=== PATIENT | female | born 1955 | race African-American/Black ===

== ENCOUNTER 2019-11-07 06:42 | Inpatient (IN) | payer OTHER ==
[2019-11-07] VITALS (61 sets, daily range): BP systolic 93–221; BP diastolic 49–128
[~2019-11-07] VITALS: Ht 167.6 cm; Wt 84.4 kg
[2019-11-07] MEDS ORDERED: NACL 0.9% 1,000 ML IV SCH (07:00)
[2019-11-07] MEDS ORDERED: ETOMIDATE 20 MG/10 ML VIAL IVP ONE (07:00)
[2019-11-07] MEDS ORDERED: SUCCINYLCHOLINE CHLORIDE 200 MG/10 ML VIAL IVP ONE (07:00)
--- NOTE | 2019-11-07 07:04 | NUR ---
LAB AT BEDSIDE ATTEMPT TO DRAW BLOOD.
[2019-11-07] MEDS ORDERED: LORazepam 2 MG/ML VIAL IVP ONE (07:15)
[2019-11-07] MEDS ORDERED: LORazepam 2 MG/ML VIAL ONE (07:16)
[2019-11-07] MEDS ORDERED: PROPOFOL 1000 MG/100 ML PREMIX 100 ML IV ONE ×2 (07:19→07:35)
[2019-11-07] MEDS ORDERED: PIPERACILLIN/TAZOBACTAM 4.5 GM in DEXTROSE 5% 100 ML IV ONE (07:20)
[2019-11-07] MEDS ORDERED: VANCOMYCIN 1,000 MG in DEXTROSE 5% 250 ML IV ONE (07:20)
--- NOTE | 2019-11-07 07:21 | NUR ---
PT BIBA FOR RESPIRATORY DISTRESS. EMS STATE ARRIVING ON SCENE TO FINDING 64F SOB TRYING TO USE HOME BI-PA AND BREATHING TREATMENT. EMS STATE INITIAL ROOM AIR 02 SAT 50%. EMS STATE MEDICAL HX OF COPD, UNABLE TO GET MORE MEDICAL HX FROM PT OR FAMILY. EMS DID NOT GATHER PT MEDICATION. PT TRANSPORTED CODE 3 TO HOSPITAL. EMS STATE ATTEMPTING TO C-PAP PT EN-ROUTE. PT DID NOT TOLERATE C-PAP AND BECAME ALTERED. PT THEN SWITCHED TO BVM. EMS ATTEMPTING TO START IV, NO SUCCESS. PT TAKING TO BED 10. DR. BECKFORD, 2 RT, 4 NURSE AND TECH AT BEDSIDE AT 0639. PT VENTILATIONS CONTINUED BY RT. PT VS 129 SINUS TACH, O2 SAT 98%, 221/128 BP, TEMP 98.6 AXILLARY. PT APPEARS TO BE DIAPHORETIC AND STATING I CANT BREATH WHILE THRASHING IN BED. 22G IV STARTED LEFT LOWER FOREARM AT 0649, IV BOLUS CONNCECTED AT THAT TIME. ETOMIDATE 20MG GIVEN AT 0652. SUCC GIVEN 0653. DR. BECKFORD INTUBATED WITH 7.5 24 AT TEETH 0654 WITH ONE ATTEMPT. COLOR CHANGE ON CO2 DETECTOR, BILATERAL LUNGS SOUNDS AUSCULTATED. PT O2 SAT 98%. FAMILY IN WAITING ROOM. X-RAY AT BEDSIDE.
[2019-11-07 07:35] LABS: MEAN CORPUSCULAR HEMOGLOBIN 29 pg (27-31); RED BLOOD CELL COUNT(AUTO) 4.43 MIL/uL (4.20-5.40); RED CELL DISTRIBUTION WIDTH 14.3 % (11.6-13.7)
[2019-11-07] MEDS ORDERED: fentaNYL 0.05 MG/ML VIAL IVP ONE (07:35)
--- NOTE | 2019-11-07 07:36 | NUR ---
PT PULLED OUT IV ON RT AC. ATTEMPTING TO MOVE HANDS TO ET TUBE. APPLIED SOFT WRIST RESTRAINTS TO BILATERAL WRISTS PER DR. HUTCHINSON. Addendum: 11/07/19 at 1140 by JONATHAN PULLED OUT RT AC IV AT 0720.
[2019-11-07 07:42] LABS: BASOPHILS % (AUTO) 0.2 % (0.0-2.0); EOSINOPHILS # (AUTO) 0.1 K/uL (0-0.4); EOSINOPHILS % (AUTO) 0.5 % (0.0-4.0); HEMATOCRIT 41.2 % (36-48); HEMOGLOBIN 12.8 g/dL (12.0-16.0); LYMPHOCYTES # (AUTO) 9.4 K/uL (2.5-16.5); LYMPHOCYTES % (AUTO) 43.9 % (20.5-51.1); MEAN CORPUSCULAR HGB CONC 31 g/dL (33-37); MEAN CORPUSCULAR VOLUME 93.1 fL (80-94); MONOCYTES # (AUTO) 1.4 K/uL (0.8-1.0); MONOCYTES % (AUTO) 6.5 % (1.7-9.3); NEUTROPHILS # (AUTO) 10.5 K/uL (1.8-7.7); NEUTROPHILS % (AUTO) 48.9 % (42.2-75.2); PLATELET COUNT (AUTO) 266 K/uL (140-450)
--- NOTE | 2019-11-07 07:43 | NUR ---
PER DR WINTER, PT ETT WAS PULL OUT FROM 24 CM @ GUM TO 23CM @ GUM.
[2019-11-07 07:44] LABS: ALBUMIN 3.3 g/dL (3.4-5.0); ANION GAP 19.4 (8-16); CARBON DIOXIDE 20.3 mmol/L (21-32); CREATININE 1.2 mg/dL (0.6-1.3); POTASSIUM 3.7 mmol/L (3.5-5.1); TOTAL BILIRUBIN 0.2 mg/dL (0.0-1.0)
[2019-11-07 07:45] LABS: WHITE BLOOD COUNT (AUTO) 21.5 K/uL (4.8-10.8)
--- NOTE | 2019-11-07 07:45 | NUR ---
INSERTED Yoon catheter WITH UROMETER utilizing sterile technique. Immediate return of 100 ml CLEAR YELLOW urine noted. Bedside drainage bag placed below level of bladder. Urine sample collected and sent to lab. Pt tolerated procedure WELL.
--- NOTE | 2019-11-07 07:52 | NUR ---
DIPROVAN DRIP RATE CALCULATED BY PATIENT WEIGHT OF 81.647 KG.
[2019-11-07] MEDS ORDERED: PIPERACILLIN/TAZOBACTAM 2.25 GM VIAL IV ONE (07:53)
[2019-11-07] MEDS ORDERED: VANCOMYCIN 1,000 MG VIAL ONE (07:53)
[2019-11-07] MEDS ORDERED: ALBUTEROL SULFATE/IPRATROPIU 3 ML SOL IH PRN (08:00)
--- NOTE | 2019-11-07 08:03 | NUR ---
DR. WINTER EVALUATING PT AT BEDSIDE.
--- NOTE | 2019-11-07 08:14 | NUR ---
DR. WINTER AT BEDSIDE FOR CENTRAL LINE INSERTION.
[2019-11-07 08:19] LABS: APPEARANCE,URINE CLEAR (CLEAR); BILIRUBIN,URINE NEGATIVE (NEGATIVE); BLOOD, URINE 1+ (NEGATIVE); COLOR,URINE YELLOW (YELLOW); LEUKOCYTE ESTERASE ,URINE NEGATIVE (NEGATIVE); NITRITE, URINE NEGATIVE (NEGATIVE); UGLUCOSE 3+ (NEGATIVE)
--- NOTE | 2019-11-07 08:20 | NUR ---
PT BECAME AGITATED WHILE LOWERING HOB TO CHECK JUGULAR SITE FOR CENTRAL LINE PLACEMENT BY DR. WINTER. PER DR. WINTER, TITRATE UP THE PROPOFOL DRIP.
--- NOTE | 2019-11-07 08:25 | NUR ---
PT RESTING IN BED, RASS -3, DR. WINTER AT BEDSIDE.
--- NOTE | 2019-11-07 08:30 | NUR ---
PT CONTINUES TO BE AGITATED, ATTEMPTING TO MOVE HANDS TO ET TUBE. PER DR. WINTER AT BEDSIDE, INCREASE THE PROPOFOL DRIP. Addendum: 11/07/19 at 1203 by JONATHAN WHEN ATTEMPTING TO MOVE PATIENT FOR CENTRAL LINE
--- NOTE | 2019-11-07 08:38 | NUR ---
TRIPLE LUMEN CENTRAL LINE TO LEFT FEMORAL INSERTED BY DR. WINTER AT BEDSIDE.
[2019-11-07] MEDS ORDERED: NACL 0.9% 1,000 ML IV ONE (08:40)
[2019-11-07 08:43] LABS: RBC,URINE 11-20 (MOD) /HPF (0-5)
--- NOTE | 2019-11-07 08:53 | NUR ---
RT AT BEDSIDE FOR RESPIRATORY INTERVENTION.
--- NOTE | 2019-11-07 09:04 | NUR ---
PT RESTING IN BED, CALM, WITH ADEQUATE AND SYMMETRICAL RISE AND FALL OF CHEST. NO RESPIRATORY DISTRESS NOTED. VSS. RT AT BEDSIDE.
--- NOTE | 2019-11-07 09:26 | NUR ---
RT AT BEDSIDE FOR ABG DRAW.
--- NOTE | 2019-11-07 10:25 | NUR ---
ADMITTED PT FROM ER. PT SEDATED. ON PROPOFOL 25 MCG/KG/MIN BASED ON DRY WEIGHT 81.6 KG. RASS -3. BEDSIDE MONITOR SHOWS SR-SB. PT ETT TO VENT WITH SETTING FIO2=30%, IC=972, AC=16. PEEP 5. NO S/S OF RESPIRATORY DISTRESS NOTED. LUNG SOUND WHEEZING. PT HAS LEFT FEMORAL CENTRAL LINE AND RIGHT FOREARM #20 AND IV TO LEFT FOREARM. INTACT AND PATENT. PT ABD LARGE, SOFT. F/C IN PLACE WITH URINE NOTED. SKIN INTACT , HOB ELEVATED 30 DEGREES WITH LOW BED POSITION, WILL CONTINUE TO MONITOR.
--- NOTE | 2019-11-07 10:25 | NUR ---
TRANFERED TO ICU VIA [facility] BY MYSELF, ISRAEL RT, NIYA EMT. REPORT TO BEVERLY CANNON RN IN ICU. PT IN STABLE CONDITION THROUGHOUT TRANSFER. VSS UPON TRANSFER TO ICU BED 2.
[2019-11-07] MEDS ORDERED: ACETAMINOPHEN 325 MG TAB PO PRN ×2 (10:30→10:35)
[2019-11-07] MEDS ORDERED: PROMETHAZINE 25 MG/ML VIAL IVP PRN (10:30)
[2019-11-07] MEDS ORDERED: NITROGLYCERIN 0.4 MG TAB SL PRN (10:30)
[2019-11-07] MEDS ORDERED: MORPHINE SULFATE 2 MG/ML SYR IVP PRN (10:35)
[2019-11-07] MEDS ORDERED: ONDANSETRON 4 MG/2 ML VIAL IVP PRN (10:35)
[2019-11-07] MEDS ORDERED: PROPOFOL 1000 MG/100 ML PREMIX 100 ML IV PRN (10:35)
[2019-11-07] MEDS ORDERED: DEXTROSE 50% 50 ML SYR IVP PRN (10:35)
[2019-11-07] MEDS ORDERED: MAG SULF 2000 MG/WATER PREMIX 50 ML IV PRN (10:35)
[2019-11-07] MEDS ORDERED: POTASSIUM CHLORIDE 10 MEQ TABER PO PRN (10:35)
--- NOTE | 2019-11-07 10:50 | NUR ---
DR. QUISPE IN TO SEE PT, SPOKE WITH PT'S DAUGHTER AT BEDSIDE. DR. QUISPE MADE AWARE OF PT'S DECREASED HR IN 50'S. WILL FOLLOW UP ON ORDERS.
--- NOTE | 2019-11-07 11:00 | NUR ---
BASED ON ABG RESULTS DR QUISPE INCREASED THE Vt TO 550 AND RR TO 16.
[2019-11-07] MEDS: BLOOD GLUCOSE MONITORING 1 DEV DEV FS SCH ×3 (11:38→21:00)
[2019-11-07] MEDS: NACL 0.9% 500 ML IV SCH ×3 (11:38→23:21)
--- NOTE | 2019-11-07 11:50 | NUR ---
SPOKE WITH PT'S BROTHER ALEX SUAREZ, OBTAINED TELEPHONE CONSENT FOR CT CHEST ANGIO W/ CONTRAST. HOWEVER, PT'S BROTHER CANNOT GIVE ANY MEDICAL HISTORY AND INFO ON HOME MEDICATIONS. WILL FOLLOW UP WITH DAUGHTER, PURA.
--- NOTE | 2019-11-07 12:15 | NUR ---
SPOKE WITH PT'S DAUGHTER PURA. HOWEVER PURA ALSO CANNOT PROVIDE ANY INFORMATION REGARDING PT'S MEDICAL HISTORY, HOME MEDS AND QUESTIONS FOR CT CHEST ANGIO. PER DAUGHTER, PURA AND BROTHER, ALEX, CALL PT'S PCP DR. BOY Denis AT [phone] FOR ANY QUESTIONS. WILL FOLLOW UP WITH PT'S PCP.
[2019-11-07] MEDS: INSULIN LISPRO SLIDING SCALE 100 UNITS/ML VIAL SUBQ PRN (12:26)
--- NOTE | 2019-11-07 12:30 | NUR ---
CALLED PT'S PCP DR. BRUNSON'S OFFICE AT [phone], CURRENTLY ON LUNCH BREAK. WILL TRY AGAIN AND FOLLOW UP.
[2019-11-07] MEDS ORDERED: ALBUTEROL SULFATE/IPRATROPIU 3 ML SOL IH SCH (13:00)
--- NOTE | 2019-11-07 13:15 | NUR ---
PT'S DAUGHTER PURA IN THE UNIT. SIGNED CONSENT AND FILLED OUT CT CHEST ANGIO W/ CONTRAST FORM. PER PURA, SHE WILL ASK PT'S PHARMACY TO FAX HOME MED LIST TO [place] ICU. ICU FAX AND PHONE NUMBERS PROVIDED TO PURA. WILL FOLLOW UP.
[2019-11-07] MEDS: SODIUM CHLORIDE FLUSH 10 ML SYR IVF SCH ×2 (13:17→21:00)
[2019-11-07] MEDS: AZITHROMYCIN 500 MG in DEXTROSE 5% 250 ML IV SCH (13:40)
--- NOTE | 2019-11-07 13:45 | NUR ---
CALLED KENYA OSMAN TO NOTIFY THAT CONSENT IS SIGNED AND PT IS READY FOR CTA CHEST
[2019-11-07] MEDS: PROPOFOL 1000 MG/100 ML PREMIX 100 ML IV PRN ×3 (13:47→23:02)
--- NOTE | 2019-11-07 14:50 | NUR ---
TRANSFERED PT CT VIA [facility] CT DONE PT BROUT BACK TO ICU 2 AND PLACED ON VENT WITH SETTINGS CHARTED PO ILL EFFECTS NOTED
--- NOTE | 2019-11-07 15:20 | NUR ---
CALLED [facility] AT [facility]: [phone] AND SPOKE WITH ERIKA GALEANA REGARDING PT'S MEDICATION LIST. PER KERVIN, SHE WILL FAX MED LIST TO ICU SOON SHE CAN. WILL FOLLOW UP.
--- NOTE | 2019-11-07 15:56 | NUR ---
CALLED PT'S PCP, DR. MAGDIEL BRUNSON'S OFFICE ([phone]) AND SPOKE WITH JENISE. PER JENISE, THEY DO NOT HAVE ANY RECORD FOR BOTH FLU AND PNEUMONIA VACCINES, BUT SHE WILL FAX CURRENT MEDICATION LIST TO ICU.
[2019-11-07] MEDS ORDERED: ALLO100T21 PO (16:35)
[2019-11-07] MEDS ORDERED: CARV6.25 PO (16:40)
[2019-11-07] MEDS ORDERED: CLOP75TA26 PO (16:42)
[2019-11-07] MEDS ORDERED: EZET10TA14 PO (16:45)
[2019-11-07] MEDS ORDERED: TRI48 PO (16:46)
[2019-11-07] MEDS ORDERED: LISI10TA11 PO (16:49)
[2019-11-07] MEDS ORDERED: MONT10TA35 PO (16:50)
[2019-11-07] MEDS ORDERED: NIFE90TE3 PO (16:51)
[2019-11-07] MEDS ORDERED: SIMV20TA1 PO (16:56)
--- NOTE | 2019-11-07 17:34 | NUR ---
DR THAPA PAGED/MESSAGED VIA CALL CENTER FOR NEW CONSULT.
[2019-11-07 17:49] LABS: APPEARANCE,URINE CLEAR (CLEAR); BILIRUBIN,URINE NEGATIVE (NEGATIVE); BLOOD, URINE 1+ (NEGATIVE); COLOR,URINE YELLOW (YELLOW); LEUKOCYTE ESTERASE ,URINE NEGATIVE (NEGATIVE); NITRITE, URINE NEGATIVE (NEGATIVE); UGLUCOSE NEGATIVE (NEGATIVE)
[2019-11-07 17:54] LABS: BARBITURATE, URINE NEG. ng/ml (NEG <=200); BENZODIAZEPINE, URINE NEG. ng/mL (NEG <=200); CANNABINOID, URINE POS. ng/mL (NEG <=50); COCAINE, URINE NEG. ng/mL (NEG <=300); OPIATE, URINE NEG. ng/mL (NEG <=2000); PHENCYCLIDINE SCREEN,URINE NEG. ng/mL (NEG <=25)
[2019-11-07 18:33] LABS: WBC,URINE 0-5 /HPF (0-5)
[2019-11-07 18:48] LABS: PROTHROMBIN TIME 8.9 secs (10.8-13.4)
--- NOTE | 2019-11-07 19:45 | NUR ---
RECEIVED REPORT FROM BEVERLY SAINI. PUPPILS 4MM, BRISK. PT ETT TO VENT ON ACVC SETTINGS. FIO2 30, TV 550, RATE 16, PEEP 5. RASS -3. PT ON SOFT BILAT WRIST RESTRAINTS. CAP REFILL LESS THAN 2 SECONDS. SKIN WARM AND DRY. CENTRAL LINE LEFT FEMORAL. INTACT, PATENT. COLLINS CATHETER IN PLACE. DRY WEIGHT 81.6KG. BED LOCKED IN LOWEST POSITION.
--- NOTE | 2019-11-07 20:00 | NUR ---
PT HAS EYES. ORAL CARE PROVIDED. NO SOB NOTED. RESPIRATIONS EVEN AND UNLABORED. RASS -3. BED LOCKED IN LOWEST POSITION.
[2019-11-07] MEDS: CARVEDILOL 6.25 MG TAB PO SCH (21:00)
--- NOTE | 2019-11-07 22:40 | NUR ---
INSERTED NGT PER DR QUISPE ORDERED. INSERTED ON RIGHT NARE. AUSCULTATED FOR PLACEMENT. CXR WILL CONFIRM FOR PLACEMENT.
[2019-11-07] MEDS: SIMVASTATIN 20 MG TAB PO SCH (23:20)
[2019-11-07] MEDS: ALLOPURINOL 100 MG TAB PO SCH (23:21)
[2019-11-08] VITALS (99 sets, daily range): BP systolic 125–185; BP diastolic 55–129
--- NOTE | 2019-11-08 | NUR ---
PT HAS EYES CLOSED, PT REPOSITIONED. NO SOB NOTED. RESPIRATIONS EVEN AND UNLABORED. WILL CONTINUE TO MONITOR.
[2019-11-08] MEDS: PROPOFOL 1000 MG/100 ML PREMIX 100 ML IV PRN ×6 (01:37→20:08)
--- NOTE | 2019-11-08 02:30 | NUR ---
PT HAS EYES CLOSED. NO SOB NOTED. RESPIRATIONS EVEN AND UNLABORED. CHEST RISE IS SYMMETRICAL. BED LOCKED IN LOWEST POSITION. WILL CONTINUE TO MONITOR.
--- NOTE | 2019-11-08 04:20 | NUR ---
ORAL CARE PROVIDED. PT REPOSITIONED. PT HAS EYES CLOSED. NO SOB NOTED. RESPIRATIONS EVEN AND UNLABORED. BED LOCKED IN LOWEST POSITION. HOB 30 DEGREES. WILL CONTINUE TO MONITOR.
[2019-11-08] MEDS: NACL 0.9% 500 ML IV SCH ×4 (05:09→20:01)
[2019-11-08] MEDS: SODIUM CHLORIDE FLUSH 10 ML SYR IVF SCH ×3 (05:10→20:26)
--- NOTE | 2019-11-08 06:00 | NUR ---
REPOSITIONED FOR COMFORT. WILL CONTINUE TO MONITOR.
[2019-11-08 06:40] LABS: ANION GAP 14.4 (8-16); CARBON DIOXIDE 23.6 mmol/L (21-32)
[2019-11-08] MEDS: BLOOD GLUCOSE MONITORING 1 DEV DEV FS SCH ×4 (06:52→20:26)
--- NOTE | 2019-11-08 07:25 | NUR ---
RECEIVED BEDSIDE REPORT FROM TERRITORY SALES MANAGER RN, SUMMER. PT HAS ETT TO VENT, AC/VC, FIO2 30, TV 550, RATE 16, PEEP 5. RASS -3 ON PROPOFOL 50MCG/KG/MIN, DRY WEIGHT 81.6 KG. PT ON SOFT BILAT WRIST RESTRAINTS. CAP REFILL LESS THAN 2 SECONDS. LUNG SOUNDS COARSE, BOWELS SOUNDS ACTIVE. SUCTIONED PT, OBTAINED WHITE SPUTUM. SKIN WARM AND DRY. RIGHT ARM HAS EDEMA DUE TO PREVIOUS IV INFILTRATION. CENTRAL LINE LEFT FEMORAL, ASYMPTOMATIC AND INTACT, RUNNING PROPOFOL AND NS AT 85ML/HR. COLLINS CATHETER IN PLACE, DRAINING CLEAR YELLOW URINE. CALL LIGHT WITHIN REACH. BED LOCKED IN LOWEST POSITION.
[2019-11-08 07:38] LABS: CHOL/HDL RATIO 8.5 (1-4.5); MAGNESIUM 1.5 mg/dL (1.8-2.4)
[2019-11-08] MEDS: NIFEdipine 90 MG TABER PO SCH (09:00)
[2019-11-08] MEDS ORDERED: KCL 20 MEQ/WATER INJ PREMIX 200 ML IV SCH (09:00)
[2019-11-08] MEDS ORDERED: ENOXAPARIN 40 MG/0.4 ML SYR SUBQ SCH (09:00)
[2019-11-08] MEDS: PANTOPRAZOLE 40 MG INJ VIAL IVP SCH (09:09)
[2019-11-08] MEDS: MONTELUKAST SODIUM 10 MG TAB PO SCH (09:10)
[2019-11-08] MEDS: EZETIMIBE 10 MG TAB PO SCH (09:11)
[2019-11-08] MEDS: CLOPIDOGREL 75 MG TAB PO SCH (09:11)
[2019-11-08] MEDS: CARVEDILOL 6.25 MG TAB PO SCH ×2 (09:12→20:27)
[2019-11-08] MEDS: LISINOPRIL 10 MG TAB PO SCH (09:12)
[2019-11-08] MEDS: FENOFIBRATE 48 MG TAB PO SCH (09:12)
[2019-11-08] MEDS: amLODIPine 5 MG TAB PO SCH (09:13)
[2019-11-08 09:40] LABS: BASOPHILS # (AUTO) 0.1 K/uL (0.00-0.22)
--- NOTE | 2019-11-08 09:53 | NUR ---
CALLED [phone] AND LEFT MESSAGE FOR PROMOTION PRODUCER, THAT DR QUISPE WANTS TO ORDER PULMOCARE FEEDING. NEEDS RATE AND FORMULA RECOMMENDATION.
--- NOTE | 2019-11-08 10:00 | NUR ---
PATIENT HAS BEEN SCREENED AND CATEGORIZED MODERATE NUTRITION RISK. PATIENT WILL BE SEEN WITHIN 3-5 DAYS OF ADMISSION. 11/10/19-11/12/[address]
[2019-11-08 10:12] LABS: EOSINOPHILS # (AUTO) 0.2 K/uL (0-0.4); MONOCYTES # (AUTO) 1.3 K/uL (0.8-1.0); PLATELET COUNT (AUTO) 131 K/uL (140-450)
[2019-11-08] MEDS: methylPREDNISolone SS 40 MG/ML VIAL IVP SCH ×3 (10:14→20:27)
[2019-11-08 10:42] LABS: BASOPHILS % (AUTO) 0.5 % (0.0-2.0); EOSINOPHILS % (AUTO) 1.4 % (0.0-4.0); HEMATOCRIT 37.9 % (36-48); HEMOGLOBIN 12.1 g/dL (12.0-16.0); LYMPHOCYTES # (AUTO) 3.7 K/uL (2.5-16.5); LYMPHOCYTES % (AUTO) 26.5 % (20.5-51.1); MEAN CORPUSCULAR HEMOGLOBIN 29 pg (27-31); MEAN CORPUSCULAR HGB CONC 32 g/dL (33-37); MEAN CORPUSCULAR VOLUME 90.5 fL (80-94); NEUTROPHILS # (AUTO) 8.7 K/uL (1.8-7.7); NEUTROPHILS % (AUTO) 62.6 % (42.2-75.2); RED BLOOD CELL COUNT(AUTO) 4.19 MIL/uL (4.20-5.40); RED CELL DISTRIBUTION WIDTH 14.8 % (11.6-13.7)
--- NOTE | 2019-11-08 10:52 | NUR ---
DISCHARGE PLANNIN64 Y/O FEMALE PATIENT FROM HOME, WHO CAME IN DUE TO SOB. PAST MEDICAL HISTORY OF COPD ON HOME O2, SMOKER, OBESITY, DIABETES AND HTN. INITIAL DIAGNOSIS OF ACUTE RESPIRATORY FAILURE. ORALLY INTUBATED IN ED AND PLACED ON VENT FIO2 50%. WBC ON ADMISSION 21.5. CXR SHOWED CHF, PNA. ON ZITHROMAX AND ROCEPHIN. CARDIO CONSULT WITH DR. THAPA FOR ELEVATED TROPONIN, TROP ON ADMISSION 0.054 AND TODAY 0.144. ON SOLU MEDROL IV AND PLAVIX. FOR CHEST CT WITH CONTRAST TODAY. DC PLAN PENDING ON PATIENT'S RESPONSE TO TREATMENT. Addendum: 11/11/19 at 1428 by Cony Kruger CM STILL ORALLY INTUBATED TO VENT, FIO2 40%. SEDATED WITH VERSED AND FENTANY. ON SOLU MEDROL IV, AZITHROMYCIN AND ROCEPHIN. CURRENT LABS INCLUDE WBC 12.8, H/H 10.4/32.3, BUN/CREA 26/0.9. CARDIO CONSULT IN PLACE. DC PLAN PENDING ON PATIENT'S RESPONSE TO TREATMENT. Addendum: 11/13/19 at 1029 by Cony Kruger CM STILL IN ICU. ORALLY INTUBATED TO VENT, FIO2 40%. ON CPAP TRIAL AGAIN TODAY, FAILED WEANING YESTERDAY. STILL SEDATED WITH VERSED AND FENTANYL. STILL ON AZITHROMYCIN AND ROCEPHIN. ON PLAVIX AND SOLU-MEDROL. CURRENT LABS INCLUDE WBC 14.3, H/H 11.6/36.1, BUN/CREA 24/0.9. CARDIO CONSULT IN PLACE. DC PLAN PENDING ON PATIENT'S RESPONSE TO TREATMENT. Addendum: 11/14/19 at 0909 by Cony Kruger CM STILL IN ICU. ETT TO VENT, FIO2 40%. ON SEDATION VACATION FOR CPAP TRIAL AGAIN. CURRENT LABS INCLUDE WBC 14.6, H/H 10.8/33.4. ON AZITHROMYCIN, ROCEPHIN AND SOLU-MEDROL. CXR TODAY SHOWED SLIGHTLY WORSENED VASCULAR CONGESTION AND A NEW SMALL LEFT PLEURAL EFFUSION. CARDIO CONSULT IN PLACE DUE TO CATHERINE CARDIA. STILL ON RESTRAINTS. CM WILL FOLLOW WITH DC NEEDS. Addendum: 11/19/19 at 1207 by Cony Kruger PATIENT EXTUBATED YESTERDAY 11/18/19 AT 1123 AND WAS PLACED ON O2 PER NC AT 2 LPM SAT 96%. OFF RESTRAINTS SINCE YESTERDAY. CURRENT LABS INCLUDE WBC 16.8, H/H 10.8/33.6. NA/K 145/3.2 AND MAG 1.7. FOR PT AND SWALLOW EVALUATION TODAY. CARDIO CONSULT IN PLACE. POSSIBLE DOWNGRADE TO TELE TODAY. CM WILL FOLLOW UP.
[2019-11-08] MEDS ORDERED: GABA100C PO (10:53)
[2019-11-08] MEDS ORDERED: DIPH25CA86 PO (10:54)
[2019-11-08] MEDS ORDERED: FURO-572 PO (10:55)
[2019-11-08] MEDS ORDERED: INSU100S22 SUBQ (10:57)
[2019-11-08 11:02] LABS: WHITE BLOOD COUNT (AUTO) 13.9 K/uL (4.8-10.8)
--- NOTE | 2019-11-08 11:18 | NUR ---
CALLED RT, ASKED FOR A PRN BREATHING TX FOR WHEEZING UPON AUSCULTATION.
--- NOTE | 2019-11-08 11:48 | NUR ---
PATIENT WAS RE-SCREENED AND CATEGORIZED HIGH NUTRITION RISK. PATIENT WILL BE SEEN WITHIN 1-2 DAYS OF ADMISSION. 11/08/19-11/09/[address]
[2019-11-08] MEDS: IPRATROPIUM 0.02% 0.5 MG/2.5 ML NEBU INH PRN (12:03)
[2019-11-08] MEDS: ALBUTEROL 0.083% 2.5 MG/3 ML NEBU INH PRN (12:03)
--- NOTE | 2019-11-08 12:30 | NUR ---
BLOOD SUGAR 184, PT NPO AT THIS TIME. NO COVERAGE IS GIVEN. WILL START TUBE FEEDING WHEN AVAILABLE.
[2019-11-08] MEDS: AZITHROMYCIN 500 MG in DEXTROSE 5% 250 ML IV SCH (13:13)
--- NOTE | 2019-11-08 14:00 | NUR ---
CALLED [phone] LEFT A MESSAGE REQUESTING FEEDING FORMULA.
--- NOTE | 2019-11-08 15:35 | NUR ---
FEEDING TUBE STARTED AT 20ML/HR VITAL AF WHICH IS RECOMMENDED BY OVEN TENDER. WATER FLUSH 120ML Q6H.
--- NOTE | 2019-11-08 15:39 | NUR ---
PT NOT IN ANY DISTRESS AT THIS TIME, PT REMAINS SEDATED. WILL CONTINUE TO MONITOR.
[2019-11-08] MEDS: INSULIN LISPRO SLIDING SCALE 100 UNITS/ML VIAL SUBQ PRN ×2 (16:43→20:29)
--- NOTE | 2019-11-08 16:46 | NUR ---
11/08/19 RD INITIAL ASSESSMENT COMPLETED PLEASE REFER TO NUTRITION ASSESSMENT UNDER CARE ACTIVITY FOR ESTIMATED NUTRITIONAL NEEDS. 1. CONTINUE VITAL AF @ 60 ML/HR X 24 HOURS -THIS WILL PROVIDE A VOLUME OF 1440 ML, 1728 KCAL, AND 108 GM PROTEIN. IT MEETS 100% OF ESTIMATED ENERGY AND PROTEIN NEEDS. 2. CONTINUE FREE WATER FLUSH OF [address] TO FOLLOW-UP 2-3 DAYS, HIGH RISK [address]
--- NOTE | 2019-11-08 17:10 | NUR ---
PT REMAINS ON DOCUMENTED VENT SETTINGS. PT IS SEDATED AT THIS TIME NOT IN ANY DISTRESS. ETT IS SECURE WITH A PATENT AIRWAY. VENT ALARMS REMAIN ON AND FUNCTIONING.
[2019-11-08] MEDS ORDERED: fentaNYL 1 MG in NACL 0.9% 80 ML IV PRN (18:35)
--- NOTE | 2019-11-08 18:35 | NUR ---
SPOKE WITH DR PONCE ON THE PHONE, MADE HIM AWARE OF PT HAS MAX OUT ON THE PROPOFOL, ASKED WHAT CAN WE GIVE IF SHE STILL FIGHTS THE VENT. DR PONCE ORDERED FENTANYL DRIP. AND PRN HYDRALAZINE FOR SBP OVER 160.
[2019-11-08] MEDS: MAGNESIUM OXIDE 400 MG TAB PO PRN (18:47)
--- NOTE | 2019-11-08 19:30 | NUR ---
RECEIVED REPORT FROM YENY SWIFT FOR CONTINUITY OF CARE. VS STABLE AT THIS TIME. PT SEDATED WITH PROPOFOL DRIP AT 50MCG/KG/MIN WITH DRY WT 81.6 KG. RASS -3. AFEBRILE. LUNG SOUNDS RHONCHI. ETT TO VENT WITH SETTINGS: FIO2 30%, TV 550, R16 AND PEEP 5. RESPIRATIONS EVEN AND UNLABORED. CHEST RISE SYMMETRIC. OXYGEN SATURATION WNL. S1+S2 HEARD. SB TO SR ON MONITOR. PULSES PALPABLE IN ALL EXTREMITIES. ABDOMEN ROUND, SOFT AND NONDISTENDED. NO BM NOTED. NGT TO FEEDING. VITAL AF RUNNNING AT 20ML/HR. ASPIRATED 20ML RESIDUAL. NGT PLACEMENT CHECKED. COLLINS CATHETER IN PLACE. DRAINING CLEAR AND LIGHT KEVIN URINE. COLLINS CATHETER SECURED IN PLACE. PT HAS PERIPHERAL IV ON LEFT FOREARM 22G AND LEFT FEMORAL CENTRAL LINE TRIPLE LUMEN. PT HAS NS AT 85ML/HR. HOB AT 30 DEGREES. ALL SAFETY PRECAUTIONS ARE IN PLACE. BED AT LOWEST POSSIBLE POSITION. WILL CONTINUE TO MONITOR PT.
--- NOTE | 2019-11-08 20:00 | NUR ---
INCREASED TUBE FEEDING RATE TO 30ML/HR. PT TOLERATING CURRENT RATE WELL. WILL REASSESS.
[2019-11-08] MEDS: ALLOPURINOL 100 MG TAB PO SCH (20:27)
[2019-11-08] MEDS: SIMVASTATIN 20 MG TAB PO SCH (20:27)
--- NOTE | 2019-11-08 22:40 | NUR ---
NO CHANGE IN PT'S CONDITION AT THIS TIME. VS REMAINS STABLE. PT REMAINS ON PROPOFOL DRIP AT 50MCG/KG/MIN. RASS -3. PT TURNED AND REPOSITIONED. ALL SAFETY PRECAUTIONS REMAINS IN PLACE.
[2019-11-09] VITALS (106 sets, daily range): BP systolic 93–182; BP diastolic 48–111
--- NOTE | 2019-11-09 00:15 | NUR ---
INCREASE FEEDING RATE TO 40ML/HR. RESIDUAL 30ML. KEPT HOB AT 30 DEGREES. ALL SAFETY PRECAUTIONS ARE IN PLACE. RESPIRATIONS EVEN AND UNLABORED. ORAL CARE PROVIDED. WILL CONTINUE TO MONITOR PT.
[2019-11-09] MEDS: NACL 0.9% 500 ML IV SCH ×4 (02:43→22:31)
--- NOTE | 2019-11-09 03:16 | NUR ---
PT STILL ON PROPOFOL DRIP. VS STABLE. RASS -3. PT TURNED AND REPOSITIONED. ORAL CARE PROVIDED. COLLINS CATHETER STILL DRAINING CLEAR AND YELLOW URINE. TOLERATING FEEDING WELL. CURRENTLY AT 40ML/HR. WILL CHECK RESIDUAL AND INCREASE TOLERATED. WILL CONTINUE TO MONITOR PT.
[2019-11-09] MEDS: PROPOFOL 1000 MG/100 ML PREMIX 100 ML IV PRN ×5 (03:42→21:39)
--- NOTE | 2019-11-09 04:10 | NUR ---
MORNING CARE PROVIDED TO PT. ABLE TO OPEN EYES AND ASSIST IN TURNING. PT NOTED HAS MILD WEAKNESS. COLLINS CATHETER CARE AND ORAL CARE PROVIDED. PADS WERE CHANGED. NO BM NOTED. INCREASED FEEDING RATE TO 50ML/HR. ASPIRATED 5ML RESIDUAL. KEPT HOB 30 DEGREES. ALL SAFETY PRECAUTIONS ARE IN PLACE.
[2019-11-09] MEDS: SODIUM CHLORIDE FLUSH 10 ML SYR IVF SCH ×3 (05:07→20:35)
[2019-11-09] MEDS: methylPREDNISolone SS 40 MG/ML VIAL IVP SCH ×3 (05:11→20:35)
--- NOTE | 2019-11-09 06:28 | NUR ---
DR. PONCE AT BEDSIDE TO SEE PT. UPDATED HIM REGARDING PT'S CONDITION.
[2019-11-09 07:19] LABS: BASOPHILS % (AUTO) 0.1 % (0.0-2.0); HEMATOCRIT 33.5 % (36-48); HEMOGLOBIN 10.9 g/dL (12.0-16.0); LYMPHOCYTES # (AUTO) 1.1 K/uL (2.5-16.5); LYMPHOCYTES % (AUTO) 8.5 % (20.5-51.1); MEAN CORPUSCULAR HEMOGLOBIN 29 pg (27-31); MEAN CORPUSCULAR HGB CONC 32 g/dL (33-37); MEAN CORPUSCULAR VOLUME 89.4 fL (80-94); MONOCYTES # (AUTO) 0.6 K/uL (0.8-1.0); MONOCYTES % (AUTO) 4.4 % (1.7-9.3); NEUTROPHILS # (AUTO) 11.7 K/uL (1.8-7.7); PLATELET COUNT (AUTO) 134 K/uL (140-450); RED BLOOD CELL COUNT(AUTO) 3.74 MIL/uL (4.20-5.40); RED CELL DISTRIBUTION WIDTH 14.2 % (11.6-13.7); WHITE BLOOD COUNT (AUTO) 13.4 K/uL (4.8-10.8)
[2019-11-09] MEDS: BLOOD GLUCOSE MONITORING 1 DEV DEV FS SCH ×4 (07:25→20:31)
--- NOTE | 2019-11-09 07:45 | NUR ---
Received bed site report from night nurse. PT is awake and PERRL. ETT to vent AC16. fio2 35%, TV 550, Peep 5. Left femoral central line w/ triple lumen all patent and asymptomatic. On propofol drip at max dose @50 mcg/kg/hr with dry weight of 81.6kg. Bilateral soft wrist restraints in place. skin clean and dry. feeding to NGT through right nares. placement checked and in place. Residual 10ml. Running at 50ml/hr and the goal is to increase to 60ml/hr. Bowel sounds active. Cap refill within 3 sec. Call light in reach and all safety precautions are in place. Will continue to monitor.
[2019-11-09] MEDS: INSULIN LISPRO SLIDING SCALE 100 UNITS/ML VIAL SUBQ PRN ×4 (07:50→20:42)
--- NOTE | 2019-11-09 07:52 | NUR ---
FLACC 8. Reposition and distraction provided but unsuccessful. Morphine as ordered as ordered. Will continue to monitor.
[2019-11-09 08:16] LABS: ALBUMIN 2.6 g/dL (3.4-5.0); ANION GAP 16.3 (8-16); CARBON DIOXIDE 19.2 mmol/L (21-32); CREATININE 0.8 mg/dL (0.6-1.3); POTASSIUM 3.5 mmol/L (3.5-5.1); TOTAL BILIRUBIN 0.3 mg/dL (0.0-1.0)
[2019-11-09] MEDS: amLODIPine 5 MG TAB PO SCH (08:41)
[2019-11-09] MEDS: NIFEdipine 90 MG TABER PO SCH (08:41)
[2019-11-09] MEDS: PANTOPRAZOLE 40 MG INJ VIAL IVP SCH (08:41)
[2019-11-09] MEDS: EZETIMIBE 10 MG TAB PO SCH (08:42)
[2019-11-09] MEDS: CLOPIDOGREL 75 MG TAB PO SCH (08:42)
[2019-11-09] MEDS: LISINOPRIL 10 MG TAB PO SCH (08:42)
[2019-11-09] MEDS: MONTELUKAST SODIUM 10 MG TAB PO SCH (08:42)
[2019-11-09] MEDS: CARVEDILOL 6.25 MG TAB PO SCH ×2 (08:42→20:35)
[2019-11-09] MEDS: ENOXAPARIN 30 MG/0.3 ML SYR SUBQ SCH (08:43)
[2019-11-09] MEDS: FENOFIBRATE 48 MG TAB PO SCH (08:46)
[2019-11-09] MEDS: fentaNYL 1 MG in NACL 0.9% 80 ML IV PRN ×3 (09:06→22:30)
--- NOTE | 2019-11-09 09:06 | NUR ---
RASS=-1. PROPOFOL DRIP MAX DOSE. STARTED FENTANYL DRIP TO TITRATE ORDERED.
--- NOTE | 2019-11-09 11:35 | NUR ---
PT REMAINS SEDATED AT THIS TIME NOT IN ANY DISTRESS. WILL CONTINUE TO MONITOR.
--- NOTE | 2019-11-09 12:00 | NUR ---
DR. PADILLA AT BED SIDE. REPORT PROVIDED. RASS -1 NOTED. FENTANYL TITRATED ORDERED.
[2019-11-09] MEDS: AZITHROMYCIN 500 MG in DEXTROSE 5% 250 ML IV SCH (13:11)
[2019-11-09] MEDS: IPRATROPIUM 0.02% 0.5 MG/2.5 ML NEBU INH PRN (15:20)
[2019-11-09] MEDS: ALBUTEROL 0.083% 2.5 MG/3 ML NEBU INH PRN (15:20)
--- NOTE | 2019-11-09 15:25 | NUR ---
FENTANYL DRIP TITRATED TO MAX AT THIS TIME DUE TO RASS +1 ALONG WITH PROPOFOL DRIP MAX. WILL CONTINUE TO MONITOR.
--- NOTE | 2019-11-09 15:28 | NUR ---
PT AGITATED AT THIS TIME BITING ETT. PRN BREATHING TX ADMINISTERED. WILL CONTINUE TO MONITOR.
--- NOTE | 2019-11-09 16:21 | NUR ---
RECEIVED NEW ORDER FROM DR. PONCE. NOTED AND CARRIED OUT.
--- NOTE | 2019-11-09 17:30 | NUR ---
PT SLIGHTLY AGITATED AT THIS TIME NOT IN ANY RESPIRATORY DISTRESS. ETT IS SECURE WITH A PATENT AIRWAY. VENT ALARMS REMAIN ON AND FUNCTIONING.
--- NOTE | 2019-11-09 18:00 | NUR ---
ASSISTED WITH REPOSITIONING FOR COMFORT. VS WITHOUT ACUTE DISTRESS. WILL CONTINUE TO MONITOR.
--- NOTE | 2019-11-09 19:07 | NUR ---
RECEIVED PT FROM DAY ON AC 550,16,+5,30%. VENT PLUGGED INTO RED OUTLET. ALARMS AUDIBLE AND WORKING. BMJV AT THE HEAD OF THE BED. PT APPEARS STABLE ON CURRENT SETTINGS. WILL CONT TO MONITOR.
--- NOTE | 2019-11-09 19:20 | NUR ---
BED SIDE REPORT GIVE TO NIGHT NURSE. PT VS WITHOUT ACUTE DISTRESS AND ALL SAFETY PRECAUTIONS ARE IN PLACE.
--- NOTE | 2019-11-09 19:20 | NUR ---
RECEIVED REPORT FROM MORNING RN GWEN FOR CONTINUITY OF CARE. VS STABLE AT THIS TIME. AFEBRILE. PT UNABLE TO MAKE NEEDS KNOWN OR FOLLOW COMMANDS. PT SEDATED WITH PROPOFOL DRIP AT 50MCG/KG/MIN WITH DRY WT 81.6 KG. ALSO ON FENTANYL DRIP AT 200MCG/HR. RASS -3. LUNG SOUNDS CLEAR. ETT TO VENT WITH SETTINGS: FIO2 30%, TV 550, R16 AND PEEP 5. RESPIRATIONS EVEN AND UNLABORED. CHEST RISE SYMMETRIC. OXYGEN SATURATION WNL. S1+S2 HEARD. SB ON MONITOR. PULSES PALPABLE IN ALL EXTREMITIES. ABDOMEN ROUND, SOFT AND NONDISTENDED. NO BM NOTED. NGT TO FEEDING. VITAL AF RUNNNING AT 60ML/HR. ASPIRATED 30ML RESIDUAL. NGT PLACEMENT CHECKED. COLLINS CATHETER IN PLACE. DRAINING CLEAR AND LIGHT KEVIN URINE. COLLINS CATHETER SECURED IN PLACE. PT HAS PERIPHERAL IV ON LEFT FOREARM 22G AND LEFT FEMORAL CENTRAL LINE TRIPLE LUMEN. PT HAS NS AT 85ML/HR. SKIN IS WARM AND DRY. HOB AT 30 DEGREES. ALL SAFETY PRECAUTIONS ARE IN PLACE. BED AT LOWEST POSSIBLE POSITION. WILL CONTINUE TO MONITOR PT.
[2019-11-09] MEDS: SIMVASTATIN 20 MG TAB PO SCH (20:34)
[2019-11-09] MEDS: ALLOPURINOL 100 MG TAB PO SCH (20:35)
--- NOTE | 2019-11-09 21:20 | NUR ---
VS REMAINS STABLE. PT STILL MAXED OUT ON PROPOFOL AND FENTANYL DRIP. SB ON MONITOR. OXYGEN SATURATION WNL. RESPIRATIONS EVEN AND UNLABORED. TOLERATING TUBE FEEDING WELL. KEPT HOB AT 30 DEGREES. ALL SAFETY PRECAUTIONS ARE IN PLACE. WILL CONTINUE TO MONITOR PT.
--- NOTE | 2019-11-09 23:17 | NUR ---
ORAL CARE PROVIDED TO PT. NGT REMAINS SECURED IN PLACE. TURNED AND REPOSITIONED. NO SKIN BREAKDOWN NOTED. RASS -3. OXYGEN SATURATION WNL. WILL CONTINUE TO MONITOR
[2019-11-10] VITALS (99 sets, daily range): BP systolic 111–165; BP diastolic 56–80
--- NOTE | 2019-11-10 00:35 | NUR ---
PT REMAINS SB ON MONITOR. NOTED HR TO GO DOWN TO 38. RASS REMAINS -3. PT RESPONDS TO PAIN. DECREASED FENTANYL. TURNED AND REPOSITIONED PT AND ALSO SUCTIONED PT. REMAINS SB ON MONITOR WITH HR BETWEEN HIGH 40S AND LOW 50S.
--- NOTE | 2019-11-10 02:20 | NUR ---
PT STILL ON PROPOFOL AND FENTANYL DRIP. TITRATING DOWN D/T LOW HEART RATE. RASS REMAINS -3. HOB AT 30 DEGREES. ALL SAFETY PRECAUTIONS ARE IN PLACE. NGT STILL SECURED. WILL CONTINUE TO MONITOR PT.
[2019-11-10] MEDS: PROPOFOL 1000 MG/100 ML PREMIX 100 ML IV PRN ×3 (02:35→08:55)
[2019-11-10] MEDS: NACL 0.9% 500 ML IV SCH ×5 (03:33→23:45)
--- NOTE | 2019-11-10 04:30 | NUR ---
MORNING CARE PROVIDED TO PT. COLLINS CATHETER CARE AND ORAL CARE DONE. PT ABLE TO TOLERATE TURNING AND REPOSITIONING. NO BM AT THIS TIME. NO FURTHER SKIN BREAKDOWN NOTED. KEPT ALL SAFETY PRECAUTIONS IN PLACE. WILL CONTINUE TO MONITOR PT.
[2019-11-10] MEDS: SODIUM CHLORIDE FLUSH 10 ML SYR IVF SCH ×3 (05:15→20:32)
[2019-11-10] MEDS: methylPREDNISolone SS 40 MG/ML VIAL IVP SCH ×3 (05:38→20:31)
[2019-11-10 05:39] LABS: BASOPHILS % (AUTO) 0.2 % (0.0-2.0); HEMATOCRIT 34.3 % (36-48); LYMPHOCYTES # (AUTO) 1.2 K/uL (2.5-16.5); LYMPHOCYTES % (AUTO) 8.9 % (20.5-51.1); MEAN CORPUSCULAR HEMOGLOBIN 29 pg (27-31); MEAN CORPUSCULAR HGB CONC 32 g/dL (33-37); MONOCYTES # (AUTO) 0.5 K/uL (0.8-1.0); MONOCYTES % (AUTO) 4.1 % (1.7-9.3); NEUTROPHILS # (AUTO) 11.5 K/uL (1.8-7.7); NEUTROPHILS % (AUTO) 86.8 % (42.2-75.2); PLATELET COUNT (AUTO) 138 K/uL (140-450); RED BLOOD CELL COUNT(AUTO) 3.81 MIL/uL (4.20-5.40); RED CELL DISTRIBUTION WIDTH 14.5 % (11.6-13.7); WHITE BLOOD COUNT (AUTO) 13.2 K/uL (4.8-10.8)
[2019-11-10] MEDS: fentaNYL 1 MG in NACL 0.9% 80 ML IV PRN ×2 (06:46→15:46)
--- NOTE | 2019-11-10 07:17 | NUR ---
RECEIVED INTUBATED PT WITH 7.5 ETT SECURED @23 TEETH/GUM ON VENT. SETTINGS AC/VC 16, VT 550, PEEP 5 AND FIO2 35%. PT SEDATED AT THIS TIME NOT IN ANY DISTRESS. VENT IS PLUGGED INTO A RED OUTLET WITH ALARMS ON AND FUNCTIONING. WILL CONTINUE TO MONITOR.
--- NOTE | 2019-11-10 07:20 | NUR ---
BEDSIDE REPORT RECEIVED FROM PLANS EXAMINER NURSE, PT RESTING QUIETLY WITH EYES CLOSED, OPENS EYES TO VOICE, TRIES TO REACH FOR ETT WHEN AROUSED, SEDATED TO RASS -3, ETT TO VENT 35% 550,16,5, 21CM AT GUM LINE, RESP EVEN UNLABORED, BILAT BREATH SOUNDS CLEAR, VITALS STABLE, SB ON MONITOR HR LOW 43, FEMORAL TRIPLE LUMEN SITE WNL, NS AT 85, PROPOFOL 50MCG/KG/MIN AT 24.48ML/HR, FENTANYL AT 118MCG/HR AT 11.8ML/HR, DRY WT 81.6KG, ABD SOFT, ROUND, +BS X4Q, NG TO R NARE, FEEDING VITAL AF AT 60ML/HR, <5ML RESIDUAL, COLLINS IN PLACE, DRAINING CLEAR YELLOW TO GRAVITY, POC REVIEWD, ALL SAFETY MEASURES IN PLACE, SOFT RESTRAINTS TO BILAT WRIST, REMOVED INSPECTED, NO S/S OF INJURY, WILL CONTINUE TO MONTOR.
[2019-11-10 07:26] LABS: ALBUMIN 2.7 g/dL (3.4-5.0); ANION GAP 19.8 (8-16); CARBON DIOXIDE 16.3 mmol/L (21-32); CREATININE 0.9 mg/dL (0.6-1.3); POTASSIUM 4.1 mmol/L (3.5-5.1); TOTAL BILIRUBIN 0.2 mg/dL (0.0-1.0)
[2019-11-10] MEDS: BLOOD GLUCOSE MONITORING 1 DEV DEV FS SCH ×4 (07:30→20:32)
[2019-11-10] MEDS: MONTELUKAST SODIUM 10 MG TAB PO SCH (08:10)
[2019-11-10] MEDS: LORazepam 2 MG/ML VIAL IVP PRN ×2 (08:10→14:39)
[2019-11-10] MEDS: PANTOPRAZOLE 40 MG INJ VIAL IVP SCH (08:10)
--- NOTE | 2019-11-10 08:10 | NUR ---
PT FIGHTING VENT, MOVING HEAD, TRYING TO REACH FOR TUBING, PRN ATIVAN GIVEN FOR BREAKTHROUGH AGITATION.
[2019-11-10] MEDS: FENOFIBRATE 48 MG TAB PO SCH (08:19)
[2019-11-10] MEDS: INSULIN LISPRO SLIDING SCALE 100 UNITS/ML VIAL SUBQ PRN ×4 (08:22→20:35)
[2019-11-10] MEDS: EZETIMIBE 10 MG TAB PO SCH (08:29)
[2019-11-10] MEDS: CLOPIDOGREL 75 MG TAB PO SCH (08:29)
[2019-11-10] MEDS: LISINOPRIL 10 MG TAB PO SCH (08:32)
[2019-11-10] MEDS: CARVEDILOL 6.25 MG TAB PO SCH ×2 (08:33→20:31)
[2019-11-10] MEDS: NIFEdipine 90 MG TABER PO SCH (08:34)
[2019-11-10] MEDS: amLODIPine 5 MG TAB PO SCH (09:00)
--- NOTE | 2019-11-10 09:05 | NUR ---
PT NOW RESTING QUIETLY, IN NO ACUTE DISTRESS.
--- NOTE | 2019-11-10 09:38 | NUR ---
FIO2 TITRATED TO 30%. PT NOT IN ANY DISTRESS. WILL CONTINUE TO MONITOR.
--- NOTE | 2019-11-10 10:50 | NUR ---
DR PONCE PAGED AND CALLED BACK, REPORTED OF HR 40'S, ORDER RECEIVED TO START VERSED FOR SEDATION AND STOP PROPOFOL, AND 12 EKG, OK TO GIVE PLAVIX AND LOVONOX BOTH PER DR PONCE.
[2019-11-10] MEDS ORDERED: PROPOFOL 1000 MG/100 ML PREMIX 100 ML IV PRN (11:05)
--- NOTE | 2019-11-10 11:24 | NUR ---
PT SEDATED AT THIS TIME NOT IN ANY DISTRESS REMAINS BRADYCARDIC NO RESPIRATORY DISTRESS. WILL CONTINUE TO MONITOR.
[2019-11-10] MEDS: ENOXAPARIN 30 MG/0.3 ML SYR SUBQ SCH (12:13)
[2019-11-10] MEDS: MIDAZOLAM MDV 50 MG in NACL 0.9% 40 ML IV PRN ×2 (12:36→19:10)
--- NOTE | 2019-11-10 12:40 | NUR ---
VERSED DRIP STARTED PER ORDER AT 1MG/HR, WILL START TO DECREASE PROPOFOL.
[2019-11-10] MEDS: AZITHROMYCIN 500 MG in DEXTROSE 5% 250 ML IV SCH (13:05)
--- NOTE | 2019-11-10 14:39 | NUR ---
PT CONTINUES TO BITE ETT, PRN ATIVAN GIVEN AT THIS TIME.
[2019-11-10] MEDS: ALBUTEROL 0.083% 2.5 MG/3 ML NEBU INH PRN (15:23)
[2019-11-10] MEDS: IPRATROPIUM 0.02% 0.5 MG/2.5 ML NEBU INH PRN (15:23)
--- NOTE | 2019-11-10 15:34 | NUR ---
PRN BREATHING TX ADMINISTERED. PT SUCTIONED OBTAINED SMALL AMOUNT OF THICK YELLOW SECRETIONS,AIRWAY IS PATENT AND SECURE. RHONCHI HEARD ON AUSCULTATION. CLEAR BS BILATERALLY POST SUCTION/BREATHING TX. WILL CONTINUE TO MONITOR.
--- NOTE | 2019-11-10 17:10 | NUR ---
PT SEDATED AT THIS TIME NOT IN ANY DISTRESS. ETT IS SECURE WITH A PATENT AIRWAY. VENT ALARMS REMAIN ON AND FUNCTIONING.
--- NOTE | 2019-11-10 18:00 | NUR ---
PT REPOSITIONED, VERSED INCREASED TO 8MG/HR FOR AGITATION, PT TRIES TO MOVE ARMS TO ETT. REMAINS ON MONITOR SB, WILL CONTINUE TO MONITOR.
--- NOTE | 2019-11-10 18:18 | NUR ---
DR PONCE AT BEDSIDE
--- NOTE | 2019-11-10 19:20 | NUR ---
RECEIVED REPORT FROM MORNING RN RENETTA FOR CONTINUITY OF CARE. VS STABLE AT THIS TIME. AFEBRILE. PT UNABLE TO MAKE NEEDS KNOWN OR FOLLOW COMMANDS. PT SEDATED WITH VERSED AT 8MG/HR AND FENTANYL AT 118.4MCG/KG/HR AND DRY WT AT 81.6 KG. RASS -3. LUNG SOUNDS CLEAR. ETT TO VENT WITH SETTINGS: FIO2 30%, TV 550, R16 AND PEEP 5. RESPIRATIONS EVEN AND UNLABORED. CHEST RISE SYMMETRIC. OXYGEN SATURATION WNL. S1+S2 HEARD. SB ON MONITOR. PULSES PALPABLE IN ALL EXTREMITIES. ABDOMEN ROUND, SOFT AND NONDISTENDED. NO BM NOTED. NGT TO FEEDING. VITAL AF RUNNNING AT 60ML/HR. ASPIRATED 30ML RESIDUAL. NGT PLACEMENT CHECKED. COLLINS CATHETER IN PLACE. DRAINING CLEAR AND LIGHT KEVIN URINE. COLLINS CATHETER SECURED IN PLACE. PT HAS LEFT FEMORAL CENTRAL LINE TRIPLE LUMEN. PT HAS NS AT 85ML/HR. SKIN IS WARM AND DRY. HOB AT 30 DEGREES. ALL SAFETY PRECAUTIONS ARE IN PLACE. BED AT LOWEST POSSIBLE POSITION. WILL CONTINUE TO MONITOR PT.
--- NOTE | 2019-11-10 19:31 | NUR ---
RECEIVED A CALL FROM PT'S DAUGHTER AND WANTED AN UPDATE REGARDING THE PT'S CONDITION.
[2019-11-10] MEDS: ALLOPURINOL 100 MG TAB PO SCH (20:31)
[2019-11-10] MEDS: SIMVASTATIN 20 MG TAB PO SCH (20:31)
--- NOTE | 2019-11-10 22:21 | NUR ---
NO CHANGE IN PT'S CONDITION AT THIS TIME. VS REMAINS STABLE. RASS -3. RESPIRATIONS ARE EVEN AND UNLABORED AND OXYGEN SATURATION WNL. PT TURNED AND REPOSITIONED. KEPT HOB AT 30 DEGREES. BED AT THE LOWEST POSSIBLE POSITION STILL AND WILL CONTINUE TO MONITOR PT.
[2019-11-11] VITALS (105 sets, daily range): BP systolic 100–182; BP diastolic 55–102
--- NOTE | 2019-11-11 00:15 | NUR ---
PT STILL ON VERSED AND FENTANYL DRIP. RASS -3. TOLERATING TUBE FEEDING WELL. 20ML RESIDUAL ASPIRATED AT THIS TIME. NGT REMAINS SECURE IN PLACE. HOB AT 30 DEGREES. PT TOLERATED BEING TURNED AND REPOSITIONED. ORAL CARE PROVIDED. ALL SAFETY PRECAUTIONS ARE IN PLACE. WILL CONTINUE TO MONITOR PT.
[2019-11-11] MEDS: fentaNYL 1 MG in NACL 0.9% 80 ML IV PRN ×3 (02:10→18:22)
[2019-11-11] MEDS: MIDAZOLAM MDV 50 MG in NACL 0.9% 40 ML IV PRN ×3 (02:10→15:22)
--- NOTE | 2019-11-11 02:10 | NUR ---
PT TURNED AND REPOSITIONED. TOLERATING FEEDING WELL. NO CHANGE IN CONDITION. PT EYES ARE CLOSED. FLACC 0. PT DOES NOT APPEAR TO BE EXPERIENCING ANY DISCOMFORT AT THIS TIME. ALL SAFETY PRECAUTIONS ARE IN PLACE. BED AT LOW POSITION. WILL CONTINUE TO MONITOR PT
--- NOTE | 2019-11-11 04:05 | NUR ---
VAP ORAL CARE PROVIDED. NO FEEDING RESIDUAL ASPIRATED. VS REMAINS STABLE. RASS -3. PT STILL ON VERSED AND FENTANYL DRIP. KEPT HOB AT 30 DEGREES. PT'S RESPIRATIONS STILL EVEN AND UNLABORED. ALL SAFETY PRECAUTIONS ARE IN PLACE. WILL CONTINUE TO MONITOR PT.
--- NOTE | 2019-11-11 05:30 | NUR ---
PT TURNED AND REPOSITIONED. MORNING CARE PROVIDED. TOLERATED BEING TURNED FAIRLY. COLLINS CATHETER REMAINS SECURED IN PLACE. ALL SAFETY PRECAUTIONS ARE IN PLACE. FLACC 0. RASS -3. WILL CONTINUE TO MONITOR PT.
[2019-11-11] MEDS: SODIUM CHLORIDE FLUSH 10 ML SYR IVF SCH ×3 (05:50→20:44)
[2019-11-11] MEDS: methylPREDNISolone SS 40 MG/ML VIAL IVP SCH ×3 (05:55→20:43)
[2019-11-11 07:04] LABS: BASOPHILS % (AUTO) 0.2 % (0.0-2.0); EOSINOPHILS % (AUTO) 0.1 % (0.0-4.0); HEMATOCRIT 32.3 % (36-48); HEMOGLOBIN 10.4 g/dL (12.0-16.0); LYMPHOCYTES # (AUTO) 1.5 K/uL (2.5-16.5); LYMPHOCYTES % (AUTO) 11.9 % (20.5-51.1); MEAN CORPUSCULAR HEMOGLOBIN 29 pg (27-31); MEAN CORPUSCULAR HGB CONC 32 g/dL (33-37); MEAN CORPUSCULAR VOLUME 90.9 fL (80-94); MONOCYTES # (AUTO) 0.6 K/uL (0.8-1.0); MONOCYTES % (AUTO) 5.1 % (1.7-9.3); NEUTROPHILS # (AUTO) 10.6 K/uL (1.8-7.7); NEUTROPHILS % (AUTO) 82.7 % (42.2-75.2); PLATELET COUNT (AUTO) 160 K/uL (140-450); RED BLOOD CELL COUNT(AUTO) 3.55 MIL/uL (4.20-5.40); RED CELL DISTRIBUTION WIDTH 14.6 % (11.6-13.7); WHITE BLOOD COUNT (AUTO) 12.8 K/uL (4.8-10.8)
--- NOTE | 2019-11-11 07:04 | NUR ---
RECEIVED INTUBATED PT WITH 7.5 ETT SECURED @23 TEETH/GUM ON VENT. SETTINGS AC/VC 16, VT 550, PEEP 5 AND FIO2 30%. PT SEDATED AT THIS TIME NOT IN ANY DISTRESS. VENT IS PLUGGED INTO A RED OUTLET WITH ALARMS ON AND FUNCTIONING. WILL CONTINUE TO MONITOR.
[2019-11-11 07:19] LABS: ALBUMIN 2.4 g/dL (3.4-5.0); ANION GAP 12.9 (8-16); CARBON DIOXIDE 21.5 mmol/L (21-32); CREATININE 0.9 mg/dL (0.6-1.3); POTASSIUM 4.4 mmol/L (3.5-5.1); TOTAL BILIRUBIN 0.2 mg/dL (0.0-1.0)
[2019-11-11] MEDS: BLOOD GLUCOSE MONITORING 1 DEV DEV FS SCH ×4 (07:30→21:22)
--- NOTE | 2019-11-11 07:30 | NUR ---
RECEIVED REPORT FROM CONCRETE PRODUCTS DISPATCHER RN. PT IS SEDATED, RASS -3. AFEBRILE. FLACC 0. UNABLE TO MAKE NEEDS KNOWN OR FOLLOW COMMANDS. SINUS BRADYCARDIA ON MONITOR. S1+S2 HEARD. PULSES PALPABLE IN ALL EXTREMITIES. ETT TO VENT W/ SETTINGS: FIO2 30%, TV 550, R16 AND PEEP 5. LUNG SOUNDS CLEAR BILATERALLY. BREATHING EVEN AND UNLABORED. ABDOMEN ROUND, SOFT AND NONDISTENDED. NGT IN PLACE TO RIGHT NARES, PLACEMENT CONFIRMED. NGT TO FEEDING VITAL AF AT 60ML/HR, FWF 120 ML Q6H. RESIDUALS 15 ML NOTED. CENTRAL LINE TLC TO RIGHT FEMORAL PATENT AND INTACT, RUNNING IVF NS AT 85 ML/HR, VERSED AT 8 MG/HR AND FENTANYL AT 118.4 MCG/HR (DRY WT AT 81.6 KG). COLLINS CATHETER IN PLACE DRAINING LIGHT KEVIN URINE TO GRAVITY. SKIN IS DRY AND WARM TO TOUCH. HOB AT 30 DEGREES, BED IN LOWEST POSITION LOCKED, CALL LIGHT WITHIN REACH. NO SIGNS OF DISTRESS NOTED AT THIS TIME. WILL CONTINUE TO MONITOR.
--- NOTE | 2019-11-11 07:45 | NUR ---
DR. PONCE IN TO SEE PT. WILL FOLLOW UP ON ORDERS.
[2019-11-11] MEDS: EZETIMIBE 10 MG TAB PO SCH (08:36)
[2019-11-11] MEDS: CARVEDILOL 6.25 MG TAB PO SCH ×2 (08:37→20:27)
[2019-11-11] MEDS: amLODIPine 5 MG TAB PO SCH (08:37)
[2019-11-11] MEDS: LISINOPRIL 10 MG TAB PO SCH (08:37)
[2019-11-11] MEDS: CLOPIDOGREL 75 MG TAB PO SCH (08:37)
[2019-11-11] MEDS: MONTELUKAST SODIUM 10 MG TAB PO SCH (08:38)
[2019-11-11] MEDS: NIFEdipine 90 MG TABER PO SCH (08:38)
[2019-11-11] MEDS: PANTOPRAZOLE 40 MG INJ VIAL IVP SCH (08:38)
[2019-11-11] MEDS: FENOFIBRATE 48 MG TAB PO SCH (08:38)
[2019-11-11] MEDS: ENOXAPARIN 30 MG/0.3 ML SYR SUBQ SCH (08:44)
--- NOTE | 2019-11-11 08:50 | NUR ---
DR. MADRID IN TO SEE PT. UPDATES GIVEN ON PT'S CONDITION. DR. MADRID AWARE OF PT'S BRADYCARDIA, HR IN 40'S. NO NEW ORDER RECEIVED AT THIS TIME.
--- NOTE | 2019-11-11 09:00 | NUR ---
MEDICATIONS ADMINISTERED ORDERED. PT TOLERATED WELL.
--- NOTE | 2019-11-11 11:01 | NUR ---
FIO2 INCREASED TO 35% DUE TO SPO2 DECREASING TO 90%. PT SUCTIONED OBTAINED SMALL AMOUNT OF BLOODY SECRETIONS, WILL CONTINUE TO MONITOR.
--- NOTE | 2019-11-11 11:40 | NUR ---
FIO2 INCREASED TO 40%. NURSE MADE AWARE WILL CONTINUE TO MONITOR.
--- NOTE | 2019-11-11 12:00 | NUR ---
VAP ORAL CARE GIVEN. TURNED AND REPOSITIONED. NO SIGNS OF DISTRESS NOTED AT THIS TIME.
[2019-11-11] MEDS: NACL 0.9% 500 ML IV SCH ×3 (12:18→21:08)
--- NOTE | 2019-11-11 12:18 | NUR ---
Hand Sole Sewer Note: I called and spoke with patient's brother Lionel , he told me he will tell his brother Srikanth Real to call me once he speaks with him. Lionel stated patient lives with Srikanth and patient's daughter Pam. I called Pam , no answer, left message.
[2019-11-11] MEDS: INSULIN LISPRO SLIDING SCALE 100 UNITS/ML VIAL SUBQ PRN ×3 (12:20→21:28)
[2019-11-11] MEDS: AZITHROMYCIN 500 MG in DEXTROSE 5% 250 ML IV SCH (12:48)
--- NOTE | 2019-11-11 12:55 | NUR ---
PT SEDATED AT THIS TIME NOT IN ANY DISTRESS. WILL CONTINUE TO MONITOR.
--- NOTE | 2019-11-11 14:02 | NUR ---
PT TURNED AND REPOSITIONED. VSS. FLACC 0. TOLERATING FEEDING WELL. SAFETY PRECAUTIONS IN PLACE.
--- NOTE | 2019-11-11 14:42 | NUR ---
Lead Solutions Architect Assessment/Discharge Plan High Risk DC Screen Yes Name: Srikanth Real Home Relationship: brother Pre-Admission Living Arrangements: Lives with Other Other: Srikanth Real and Pam Prior ADL Independent Current Home Health Name/Tel: N/A Current DME/02 Name/Tel: [facility], home O2 Current Hospice Name/Tel: N/A Current Dialysis Name/Tel: N/A Healthcare Decision Maker: Patient Tentative Discharge Plan Summary: Patient is a 64 year old female, admitted for acute respiratory failure. Patient is currently intubated, she is not able to provide information for assessment/discharge plan. I received a call back from patient's son Srikanth Real. He stated he has not talked to attending MD. He expressed he would like to speak with MD regarding patient's plan of care, I informed Charge Nurse Juliette of Srikanth's request. She stated she will tell MD to please contact Srikanth. Patient's pcp is Mechelle Dominguez. Patient does not have any difficulty filling her prescriptions. Srikanth told me he does not know if patient has an Advance Directive. I provided Srikanth with my contact information. Lead Solutions Architect and/or Certified Medical Technician will follow up as needed. Signature: ROBERTA Bardales Date: Nov 11, 2019
--- NOTE | 2019-11-11 15:47 | NUR ---
11/11/19 RD FOLLOW UP COMPLETED PLEASE REFER TO NUTRITION ASSESSMENT UNDER CARE ACTIVITY FOR ESTIMATED NUTRITIONAL NEEDS. 1. RECOMMEND VITAL AF @ 50 ML/HR X 24 HOURS -THIS WILL PROVIDE A VOLUME OF 1200 ML, 1440 KCAL, AND 90 GM PROTEIN. IT MEETS 100% OF ESTIMATED ENERGY AND PROTEIN NEEDS. 2. CONTINUE FREE WATER FLUSH OF [address] TO FOLLOW-UP 2-3 DAYS, HIGH RISK [address]
[2019-11-11] MEDS: LORazepam 2 MG/ML VIAL IVP PRN (16:00)
--- NOTE | 2019-11-11 16:39 | NUR ---
RECEIVED CALL FROM PT'S DAUGHTER PURA, UPDATES GIVEN ON PT'S CONDITION.
--- NOTE | 2019-11-11 17:20 | NUR ---
PT REMAINS SEDATED NOT IN ANY DISTRESS AT THIS TIME. ETT IS SECURE WITH A PATENT AIRWAY. VENT ALARMS REMAIN ON AND FUNCTIONING.
--- NOTE | 2019-11-11 19:00 | NUR ---
RECEIVED REPORT FROM AM NURSE. PT AT BED EYES CLOSED, SEDATED, RASS -3, PERRL 3MM, SLUGGISH, HEART RATE REGULAR S1S2 PRESENT, SINUS BRADYCARDIA, CAP REFILL <3S, PULSES 2+ BILATERAL UPPER AND LOWER EXTREMITIES, PT BREATHING REGULARLY, TRACH TO VENT, AT VENTILATOR SETTINGS, AC/VC, 40% TV 550 RR 16, PEEP 5, LUNG SOUNDS CLEAR THROUGHOUT, DIMINISHED AT BASES, ABDOMEN, SOFT, ROUND, NONDISTENDED, NONTENDER, BOWEL SOUNDS ACTIVE IN ALL QUADRANTS, PT HAS NG TUBE ON RIGHT NARES, RUNNING VITAL AF AT 50 ML/HR, WATER FLUSH OF 80 ML Q6HR, RESIDUAL 0 ML, PT HAS GENERALIZED WEAKNESS, SKIN TEAR AT RIGHT AC, VERSATYL DRESSING IN PLACE, DRY AND INTACT. PT HAS LEFT FEMORAL CENTRAL LINE TRIPLE LUMEN RUNNING NS AT 85 ML/HR, VERSED 10 MG/HR, FENTANYL, 118.4 MCG/HR, DRY WEIGHT 81.6 KG. HOB 30 DEGREES, SIDE RAILS UP X2, BED AT LOWEST POSITION. Addendum: 11/11/19 at 2326 by Jose Lopez RN CORRECTION PT ETT TO VENT. Addendum: 11/12/19 at 0815 by Jose Lopez RN VERSED RUNNING AT 1.4 MCG/KG/HR
--- NOTE | 2019-11-11 19:30 | NUR ---
REPORT GIVEN TO TIMBER SELECTOR RN FOR CONTINUITY OF CARE. NO SIGNS OF DISTRESS NOTED AT THIS TIME.
--- NOTE | 2019-11-11 20:30 | NUR ---
MEDICATIONS GIVEN. VAP ORAL CARE PERFORMED. SUCTIONED SCANT AMOUNT OF THICK CLEAR MUCOUS. PT TOLERATED PROCEDURE WELL.
[2019-11-11] MEDS: SIMVASTATIN 20 MG TAB PO SCH (20:43)
[2019-11-11] MEDS: ALLOPURINOL 100 MG TAB PO SCH (20:43)
--- NOTE | 2019-11-11 22:21 | NUR ---
PT AT BED, EYES CLOSED, BREATHING REGULARLY ETT TO VENT. RASS -3. WILL CONTINUE TO MONITOR.
[2019-11-11] MEDS: MIDAZOLAM MDV 100 MG in NACL 0.9% 80 ML IV PRN (22:23)
[2019-11-12] VITALS (105 sets, daily range): BP systolic 107–180; BP diastolic 52–89
--- NOTE | 2019-11-12 00:17 | NUR ---
REPOSITIONED PT. VAP ORAL CARE PERFORMED. SUCTIONED SCANT CLEAR MUCOUS. WILL CONTINUE TO MONITOR.
--- NOTE | 2019-11-12 02:35 | NUR ---
PT AT BED EYES CLOSED. BREATHING REGULARLY ETT TO VENT. RASS -3.
[2019-11-12] MEDS: NACL 0.9% 500 ML IV SCH ×4 (03:05→20:16)
[2019-11-12] MEDS: hydrALAZINE 20 MG/ML VIAL IVP PRN (03:39)
--- NOTE | 2019-11-12 03:44 | NUR ---
BP 170/64 HEART RATE 51 SINUS BRADYCRADIA. ADMINISTERED HYDRALAZINE 10 MG IVP.
[2019-11-12] MEDS: fentaNYL 1 MG in NACL 0.9% 80 ML IV PRN ×3 (03:51→19:04)
[2019-11-12] MEDS: methylPREDNISolone SS 40 MG/ML VIAL IVP SCH ×3 (04:45→20:19)
[2019-11-12] MEDS: SODIUM CHLORIDE FLUSH 10 ML SYR IVF SCH ×3 (05:00→21:15)
[2019-11-12] MEDS: IPRATROPIUM 0.02% 0.5 MG/2.5 ML NEBU INH PRN (07:14)
[2019-11-12] MEDS: ALBUTEROL 0.083% 2.5 MG/3 ML NEBU INH PRN (07:14)
--- NOTE | 2019-11-12 07:14 | NUR ---
RECEIVED PT ON CARESCAPE ON DOCUMENTED SETTINGS, ALARMS ARE ON AND AUDIBLE, PT IN HF ASLEEP PT IS RESTRAINED, PTS ETT IS SECURE, SIZE 7.5 23 CM ANCHOR FAST IN PLACE, BS CLEAR HHN GIVEN I\L WITH 2.5 MG ALBUTEROL AND 0.5 MG ATROVENT, BMV HOB, VENT PLUGGED INTO RED OUTLET, WILL CONTINUE TO MONITOR
[2019-11-12] MEDS: MIDAZOLAM MDV 100 MG in NACL 0.9% 80 ML IV PRN ×2 (07:26→17:29)
[2019-11-12] MEDS: BLOOD GLUCOSE MONITORING 1 DEV DEV FS SCH ×4 (07:30→21:22)
--- NOTE | 2019-11-12 07:30 | NUR ---
RECEIVED REPORT FROM HOUSEKEEPING DIRECTOR RN. PT IS SEDATED, RASS -3. UNABLE TO MAKE NEEDS KNOWN OR FOLLOW COMMANDS. NORMAL SINUS RHYTHM ON MONITOR. S1+S2 HEARD. PULSES PALPABLE IN ALL EXTREMITIES. ETT TO VENT W/ SETTINGS: FIO2 40%, TV 550, R16 AND PEEP 5. LUNG SOUNDS CLEAR BILATERALLY. BREATHING EVEN AND UNLABORED. NGT IN PLACE TO RIGHT NARES, PLACEMENT CONFIRMED. NGT TO FEEDING VITAL AF AT 50 ML/HR, FWF 80 ML Q6H. NO RESIDUALS NOTED. ABDOMEN ROUND, SOFT AND NONDISTENDED W/ ACTIVE BOWEL SOUNDS. CENTRAL LINE TLC TO RIGHT FEMORAL PATENT AND INTACT, RUNNING IVF NS AT 85 ML/HR, VERSED AT 10 MG/HR AND FENTANYL AT 1.4 MCG/KG/HR (DRY WT AT 81.6 KG). COLLINS CATHETER IN PLACE DRAINING LIGHT YELLOW URINE TO GRAVITY. SKIN IS DRY AND WARM TO TOUCH. HOB AT 30 DEGREES, BED IN LOWEST POSITION LOCKED, CALL LIGHT WITHIN REACH. AFEBRILE. FLACC 0. NO SIGNS OF DISTRESS NOTED AT THIS TIME. WILL CONTINUE TO MONITOR.
--- NOTE | 2019-11-12 07:30 | NUR ---
CHANGE OF SHIFT REPORT GIVEN TO AM NURSE.
--- NOTE | 2019-11-12 07:45 | NUR ---
PT SEEN AND EXAMINED BY DR. PONCE. RECEIVED ORDER TO CONTINUE SAME IV ABX X 5 DAYS.
[2019-11-12] MEDS: NIFEdipine 90 MG TABER PO SCH (08:13)
[2019-11-12] MEDS: PANTOPRAZOLE 40 MG INJ VIAL IVP SCH (08:13)
[2019-11-12] MEDS: MONTELUKAST SODIUM 10 MG TAB PO SCH (08:13)
[2019-11-12] MEDS: CLOPIDOGREL 75 MG TAB PO SCH (08:13)
[2019-11-12] MEDS: CARVEDILOL 6.25 MG TAB PO SCH ×2 (08:13→20:20)
[2019-11-12 08:14] LABS: BASOPHILS % (AUTO) 0.3 % (0.0-2.0); EOSINOPHILS % (AUTO) 0.1 % (0.0-4.0); HEMATOCRIT 36.1 % (36-48); HEMOGLOBIN 11.6 g/dL (12.0-16.0); LYMPHOCYTES # (AUTO) 1.8 K/uL (2.5-16.5); LYMPHOCYTES % (AUTO) 12.5 % (20.5-51.1); MEAN CORPUSCULAR HEMOGLOBIN 29 pg (27-31); MEAN CORPUSCULAR HGB CONC 32 g/dL (33-37); MEAN CORPUSCULAR VOLUME 90.1 fL (80-94); MONOCYTES # (AUTO) 0.6 K/uL (0.8-1.0); MONOCYTES % (AUTO) 4.4 % (1.7-9.3); NEUTROPHILS # (AUTO) 11.8 K/uL (1.8-7.7); NEUTROPHILS % (AUTO) 82.7 % (42.2-75.2); PLATELET COUNT (AUTO) 171 K/uL (140-450); RED BLOOD CELL COUNT(AUTO) 4.01 MIL/uL (4.20-5.40); RED CELL DISTRIBUTION WIDTH 14.4 % (11.6-13.7); WHITE BLOOD COUNT (AUTO) 14.3 K/uL (4.8-10.8)
[2019-11-12] MEDS: FENOFIBRATE 48 MG TAB PO SCH (08:14)
[2019-11-12] MEDS: LISINOPRIL 10 MG TAB PO SCH (08:14)
[2019-11-12] MEDS: amLODIPine 5 MG TAB PO SCH (08:15)
[2019-11-12] MEDS: EZETIMIBE 10 MG TAB PO SCH (08:15)
--- NOTE | 2019-11-12 08:15 | NUR ---
MEDICATIONS ADMINISTERED ORDERED. PT TOLERATED WELL.
[2019-11-12] MEDS: ENOXAPARIN 30 MG/0.3 ML SYR SUBQ SCH (08:16)
[2019-11-12] MEDS: INSULIN LISPRO SLIDING SCALE 100 UNITS/ML VIAL SUBQ PRN ×4 (08:21→21:24)
--- NOTE | 2019-11-12 09:10 | NUR ---
SEDATION OFF PRIOR TO SBT.
[2019-11-12 09:13] LABS: ALBUMIN 2.7 g/dL (3.4-5.0); ANION GAP 14.1 (8-16); CREATININE 0.9 mg/dL (0.6-1.3); POTASSIUM 4.1 mmol/L (3.5-5.1); TOTAL BILIRUBIN 0.2 mg/dL (0.0-1.0)
--- NOTE | 2019-11-12 09:36 | NUR ---
PLACED PT ON SBT TRIAL 5\10
--- NOTE | 2019-11-12 09:58 | NUR ---
PT FAILED SBT HIGH RR
--- NOTE | 2019-11-12 10:00 | NUR ---
FAILED SBT. RESUMED SEDATION.
--- NOTE | 2019-11-12 12:02 | NUR ---
VAP ORAL CARE GIVEN. TURNED AND REPOSITIONED. PT ON FENTANYL AND VERSED DRIPS, RASS -3. AFEBRILE. TOLERATING TUBE FEEDING WELL. NO S/SX OF DISTRESS NOTED AT THIS TIME. SAFETY PRECAUTIONS IN PLACE. WILL CONTINUE TO MONITOR.
[2019-11-12] MEDS: AZITHROMYCIN 500 MG in DEXTROSE 5% 250 ML IV SCH (13:16)
--- NOTE | 2019-11-12 14:18 | NUR ---
NO CHANGE IN CONDITION AT THIS TIME. RASS -3, ON FENTANYL AND VERSED DRIPS. FLACC 0. SAFETY PRECAUTIONS IN PLACE.
--- NOTE | 2019-11-12 16:05 | NUR ---
VAP ORAL CARE GIVEN. TURNED AND REPOSITION FOR COMFORT. PRESSURE AREAS OFF LOADED. HEELS PROTECTORS IN PLACE.
--- NOTE | 2019-11-12 18:14 | NUR ---
DR. THAPA IN TO SEE PT. UPDATES GIVEN ON PT'S CONDITION. WILL FOLLOW UP ON ORDERS.
--- NOTE | 2019-11-12 19:30 | NUR ---
RECEIVED PT FROM ANSON SAINI. PT IS SEDATED, RASS -3. PERRL. R/L PUPPILS 4MM, BRISK. PT IS ETT TO VENT. ON ACVC SETTINGS. FIO2 40, TV 550, RATE 16, PEEP 5. SINUS BRADYCARDIA ON MONITOR. RESPIRATIONS EVEN AND UNLABORED. NO SOB NOTED. NGT IN RIGHT NARE. NO RESIDUALS NOTED. VITAL AF INFUSING AT 50ML/HR IN NGT. BOWEL SOUNDS ACTIVE. LEFT FORMAL CENTRAL LINE, TLC. INTACT, FLUSHED, PATENT. NS INFUSING AT 85ML/HR, VERSED INFUSING 10MG/HR, FENTANYL INFUSING 2MCG/KG/HR. DRY WEIGHT 81.6KG. COLLINS CATHETER IN PLACE. GENERALIZED WEAKNESS. SKIN IS WARM AND DRY. SKIN TEAR NOTED ON RIGHT AC. SEE WOUND ASSESSMENT. CAP REFILL LESS THAN 2 SECONDS. HOB 30 DEGREES. BED LOCKED IN LOWEST POSITION.
--- NOTE | 2019-11-12 19:30 | NUR ---
REPORT GIVEN TO NETSUITE DEVELOPER RN FOR CONTINUITY OF CARE. NO SIGNS OF DISTRESS NOTED AT THIS TIME.
--- NOTE | 2019-11-12 19:33 | NUR ---
RECEIVED PATIENT FROM DAY ON AC 16,550,+5,40%. ETT 7.5 @ 23 @GUM. ALARMS AUDIBLE AND WORKING. VENT PLUGGED INTO RED OUTLET. [employer] AT HEAD OF BED. PT REMAINS STABLE. WILL CONT. TO MONITOR
[2019-11-12] MEDS: ALLOPURINOL 100 MG TAB PO SCH (20:19)
[2019-11-12] MEDS: SIMVASTATIN 20 MG TAB PO SCH (20:19)
--- NOTE | 2019-11-12 21:15 | NUR ---
ORDERED MEDICATIONS GIVEN. HELD COREG BECAUSE OF LOW HEART RATE.
--- NOTE | 2019-11-12 23:30 | NUR ---
RASS -3, SEDATED ON FENTANYL AND VERSED. NO SOB NOTED. RESPIRATIONS EVEN AND UNLABORED. BED LOCKED IN LOWEST POSITION. WILL CONTINUE TO MONITOR.
[2019-11-13] VITALS (99 sets, daily range): BP systolic 111–190; BP diastolic 52–106
[2019-11-13] MEDS: MIDAZOLAM MDV 100 MG in NACL 0.9% 80 ML IV PRN ×4 (00:51→23:21)
[2019-11-13] MEDS: hydrALAZINE 20 MG/ML VIAL IVP PRN ×3 (01:04→10:17)
--- NOTE | 2019-11-13 01:11 | NUR ---
BLOOD PRESSURE 164/68 ON MONITOR. 10MG OF HYDRALAZINE GIVEN.
[2019-11-13] MEDS: NACL 0.9% 500 ML IV SCH ×4 (02:09→23:19)
[2019-11-13] MEDS: fentaNYL 1 MG in NACL 0.9% 80 ML IV PRN ×4 (02:25→23:27)
--- NOTE | 2019-11-13 03:21 | NUR ---
PT SEDATED ON FENTANYL AND VERSED, RASS -3. NO SOB NOTED. RESPIRATIONS EVEN AND UNLABORED. HOB 30 DEGREES. BED LOCKED IN LOWEST POSITION. WILL CONTINUE TO MONITOR.
[2019-11-13] MEDS: methylPREDNISolone SS 40 MG/ML VIAL IVP SCH ×3 (04:10→20:48)
[2019-11-13] MEDS: SODIUM CHLORIDE FLUSH 10 ML SYR IVF SCH ×3 (04:10→20:54)
--- NOTE | 2019-11-13 05:30 | NUR ---
ORDERED MEDICATIONS GIVEN. NO SOB NOTED. RESPIRATIONS EVEN AND UNLABORED.
--- NOTE | 2019-11-13 07:22 | NUR ---
RECEIVED PT ON CARESCAPE ON DOCUMENTED SETTINGS, ALARMS ARE ON AND AUDIBLE, PTS ETT SIZE 7.5 IS SECURE [address] FAST IN PLACE, BMV HOB, VENT PLUGGED INTO RED OUTLET, WILL CONTINUE TO MONITOR
--- NOTE | 2019-11-13 07:28 | NUR ---
BEDSIDE REPORT RECEIVED FROM PULPER OPERATOR NURSE, DRY WT 81.6KG, PT RESTING WITH EYES CLOSED, SEDATED TO RASS -3 WITH FENTANYL 2MCG/KG/HR (16.32ML/HR) AND VERSED 11MG/HR (11ML/HR), LEFT FEMORAL CENTRAL LINE IN PLACE, SITE WNL, RESP EVEN UNLABORED, BS CLEAR BILAT, ETT TO VENT 40% FIO2, 550, 16, 5, O2 SAT 95%, PT ON MONITOR, VITALS STABLE, SINUS CATHERINE CARDIA, CAP REFIL <3, SKIN WARM DRY COLOR WLN, ABD SOFT, NON DISTENDED, NGT FEED ONGOING AT 50ML/HR, COLLINS DRAINING TO GRAVITY CLEAR YELLOW. ALL SAFETY MEASURES IN PLACE, POC REVIEWED, NO IMMEDIATE NEEDS AT THIS TIME, WILL CONTINUE TO MONITOR.
--- NOTE | 2019-11-13 07:35 | NUR ---
DR PONCE AT BEDSIDE, PLAN TO TRY SEDATION VACATION AND WEAN OFF VENT TODAY. RT RAMSEY AT BEDSIDE, AWARE OF PLAN.
[2019-11-13] MEDS: EZETIMIBE 10 MG TAB PO SCH (08:06)
[2019-11-13] MEDS: CLOPIDOGREL 75 MG TAB PO SCH (08:07)
[2019-11-13] MEDS: MONTELUKAST SODIUM 10 MG TAB PO SCH (08:07)
[2019-11-13] MEDS: FENOFIBRATE 48 MG TAB PO SCH (08:07)
[2019-11-13] MEDS: amLODIPine 5 MG TAB PO SCH (08:07)
[2019-11-13] MEDS: LISINOPRIL 10 MG TAB PO SCH (08:07)
[2019-11-13] MEDS: ENOXAPARIN 30 MG/0.3 ML SYR SUBQ SCH (08:08)
[2019-11-13] MEDS: INSULIN LISPRO SLIDING SCALE 100 UNITS/ML VIAL SUBQ PRN ×4 (08:09→21:02)
[2019-11-13] MEDS: BLOOD GLUCOSE MONITORING 1 DEV DEV FS SCH ×4 (08:10→20:54)
--- NOTE | 2019-11-13 08:35 | NUR ---
sedation vacation, versed and fentanyl turned off at this time.
[2019-11-13] MEDS: CARVEDILOL 6.25 MG TAB PO SCH ×2 (09:00→20:49)
[2019-11-13] MEDS: NIFEdipine 90 MG TABER PO SCH (09:00)
--- NOTE | 2019-11-13 09:00 | NUR ---
RT RAMSEY AT BEDSIDE FOR
[2019-11-13] MEDS: PANTOPRAZOLE 40 MG INJ VIAL IVP SCH (09:38)
--- NOTE | 2019-11-13 10:02 | NUR ---
CALLED [facility] RESULTS TO DR PONCE, LEAVE ON SBT FOR 2 MORE HOURS CALL HIM BACK
--- NOTE | 2019-11-13 10:24 | NUR ---
PLACED PT BACK ON A/C HR BP RR HIGH
--- NOTE | 2019-11-13 10:30 | NUR ---
PT RESTLESS, AGITATED, TRYING TO PULL ON ETT TUBE, HR INCREASED TO 120, RR 40'S, BP 180/100'S, DR PONCE PAGED AND CALLED BACK, REPORTED PT'S CONDITION, WILL RESUME SEDATION AND VENTILATOR, ROXY RT AWARE.
[2019-11-13] MEDS: LORazepam 2 MG/ML VIAL IVP PRN ×2 (10:32→18:38)
--- NOTE | 2019-11-13 11:45 | NUR ---
PT REPOSITIONED, PT NOW RESTING QUIETLY, APPEARS COMFORTABLE, ETT TO VENT, RESP EVEN UNLABORED. VITALS STABLE ON MONITOR, WILL CONTINUE TO MONTIOR.
[2019-11-13] MEDS: AZITHROMYCIN 500 MG in DEXTROSE 5% 250 ML IV SCH (12:12)
--- NOTE | 2019-11-13 14:27 | NUR ---
11/13/19 RD FOLLOW UP COMPLETED PLEASE REFER TO NUTRITION ASSESSMENT UNDER CARE ACTIVITY FOR ESTIMATED NUTRITIONAL NEEDS. 1. CONTINUE VITAL AF 1.2 @ 50 ML/HR X 24 HOURS -THIS WILL PROVIDE A VOLUME OF 1200 ML, 1440 KCAL, AND 90 GM PROTEIN. IT MEETS 100% OF ESTIMATED ENERGY AND PROTEIN NEEDS. 2. CONTINUE FREE WATER FLUSH OF [address] TO FOLLOW-UP 2-3 DAYS, HIGH RISK [address] RD
--- NOTE | 2019-11-13 14:50 | NUR ---
LEFT FEMORAL CENTRAL LINE DRESSING CHANGED FOR SOILING USING STERILE TECHNIQUE PER PROTOCOL.
--- NOTE | 2019-11-13 16:00 | NUR ---
REPOSITIONED, LINEN CHANGED, PERICARE DONE.
--- NOTE | 2019-11-13 18:39 | NUR ---
PT TRYING TO SIT UP, RESTLESS, BP INCREASED, ATIVAN GIVEN PER PRN ORDER AT THIS TIME.
--- NOTE | 2019-11-13 18:56 | NUR ---
RECEIVED PATIENT FROM DAY ON AC 16,550,+5,40%. ALARMS AUDIBLE AND WORKING. VENT PLUGGED INTO RED OUTLET. BMV AT BEDSIDE. WILL CONT TO MONITOR
--- NOTE | 2019-11-13 19:03 | NUR ---
PT NOW RESTING QUIETLY, RESP EVEN UNLABORED, BP 149/77. APPEARS COMFORTABLE
--- NOTE | 2019-11-13 19:15 | NUR ---
BEDSIDE REPORT GIVEN TO EDUCATIONAL INTERPRETER NURSE MUKUL DUPONT IN STABLE CONDITION.
--- NOTE | 2019-11-13 19:30 | NUR ---
BEDSIDE REPORT RECEIVED FROM RENETTA SAINI AM SHIFT.PT ON ETT TO VENT 40% FIO2, TV 550, R 16,PEEP 5, O2 SAT 100 %.NO S/S OF RESP DISTRESS, NO SOB. PT AWAKE TO LIGHT PAIN.CONT ON SEDATION WITH DRY WT 81.6KG. SEDATED TO RASS -3 WITH FENTANYL 2MCG/KG/HR (16.32ML/HR) AND VERSED 12MG/HR . SINUS CATHERINE ON MONITOR. CENTRAL LINE TO LEFT FEMORAL WITH TRIPLE LUMENS.IVF NS AT 85 CC/HR. SKIN WARM DRY COLOR WLN, BUE EDEMA NON PITTING,DISCOLORATION TO BUE. SKIN TEAR TO RIGHT AC.DRESSING INTACT.ABD SOFT, NON DISTENDED, NGT FEED ON GOING AT 50 ML/HR WITH H20 FLUSH 80 CC Q 6HRS. F/C DRAINING TO GRAVITY CLEAR YELLOW. ALL SAFETY MEASURES IN PLACE. WILL CONTINUE TO MONITOR. Addendum: 11/13/19 at 2240 by Yisel Valerio RN PT ON SOFT WRIST RESTRAIN FOR EPISODE PULLING TUBING. NO INJURY OR DISCOLORATION ON THE AREA.
[2019-11-13] MEDS: SIMVASTATIN 20 MG TAB PO SCH (20:48)
[2019-11-13] MEDS: ALLOPURINOL 100 MG TAB PO SCH (20:48)
--- NOTE | 2019-11-13 21:15 | NUR ---
NIGHT MEDS GIVEN, BLOOD SUGAR IS 289 AND 6 UNITS INSULIN GIVEN ORDER. KEPT PT CLEAN AND DRY.
[2019-11-14] VITALS (104 sets, daily range): BP systolic 105–222; BP diastolic 33–124
--- NOTE | 2019-11-14 00:15 | NUR ---
PT CONT ON SEDATION VERSED AND FENTANYL DRIPS. NO S/S OF ANY DISTRESS AT THIS TIME. KEPT PT CLEAN AND DRY.
[2019-11-14] MEDS: NACL 0.9% 500 ML IV SCH ×3 (01:41→12:47)
--- NOTE | 2019-11-14 03:40 | NUR ---
AM CARE GIVEN, SPONGE BATH, ORAL CARE AND F/C CARE GIVEN. KEPT PT CLEAN AND DRY.
[2019-11-14] MEDS: SODIUM CHLORIDE FLUSH 10 ML SYR IVF SCH ×3 (04:38→20:57)
[2019-11-14] MEDS: methylPREDNISolone SS 40 MG/ML VIAL IVP SCH ×3 (05:00→20:56)
[2019-11-14] MEDS: fentaNYL 1 MG in NACL 0.9% 80 ML IV PRN ×2 (05:02→22:49)
[2019-11-14 06:16] LABS: BASOPHILS % (AUTO) 0.1 % (0.0-2.0); EOSINOPHILS # (AUTO) 0.1 K/uL (0-0.4); EOSINOPHILS % (AUTO) 0.4 % (0.0-4.0); HEMATOCRIT 33.4 % (36-48); HEMOGLOBIN 10.8 g/dL (12.0-16.0); LYMPHOCYTES # (AUTO) 1.5 K/uL (2.5-16.5); LYMPHOCYTES % (AUTO) 10.6 % (20.5-51.1); MEAN CORPUSCULAR HEMOGLOBIN 29 pg (27-31); MEAN CORPUSCULAR HGB CONC 32 g/dL (33-37); MEAN CORPUSCULAR VOLUME 90.3 fL (80-94); MONOCYTES # (AUTO) 0.7 K/uL (0.8-1.0); MONOCYTES % (AUTO) 5.1 % (1.7-9.3); NEUTROPHILS # (AUTO) 12.2 K/uL (1.8-7.7); NEUTROPHILS % (AUTO) 83.8 % (42.2-75.2); PLATELET COUNT (AUTO) 194 K/uL (140-450); RED CELL DISTRIBUTION WIDTH 14.7 % (11.6-13.7); WHITE BLOOD COUNT (AUTO) 14.6 K/uL (4.8-10.8)
[2019-11-14 06:45] LABS: ALBUMIN 2.3 g/dL (3.4-5.0); ANION GAP 12.9 (8-16); CARBON DIOXIDE 23.1 mmol/L (21-32); CREATININE 0.7 mg/dL (0.6-1.3); TOTAL BILIRUBIN 0.2 mg/dL (0.0-1.0)
[2019-11-14] MEDS: BLOOD GLUCOSE MONITORING 1 DEV DEV FS SCH ×4 (06:55→20:31)
[2019-11-14] MEDS: INSULIN LISPRO SLIDING SCALE 100 UNITS/ML VIAL SUBQ PRN ×2 (06:58→20:36)
--- NOTE | 2019-11-14 07:15 | NUR ---
BLOOD SUGAR 341 AND 8 UNITS INSULIN GIVEN JORGE WELL.
--- NOTE | 2019-11-14 07:18 | NUR ---
RECEIVED BEDSIDE REPORT FROM KIAH FRONT OF HOUSE MANAGER RN, FOR CONTINUITY OF CARE. PATIENT IS SEDATED, RASS -3, DRY WEIGHT OF 81.6KG. PATIENT SKIN IS WARM, DRY, INTACT. SHE HAS CENTRAL LINE TO LEFT FEMORAL, ASYMPTOMATIC AND PATENT. PATIENT HAS ETT TO VENT, BREATHING IS EVEN AND UNLABORED. SB ON MONITOR, HYPERTENSIVE. FLACC 0. SHE HAS NGT TO R. NARES TO TUBE FEEDING. COLLINS CATHETER IN PLACE. HOB 40 DEGREES ELEVATED, SIDE RAILS UP 3X, BED LOCKED IN LOW POSITION. WILL CONTINUE TO MONITOR
--- NOTE | 2019-11-14 07:25 | NUR ---
REPORT GIVEN TO SHANNA RN AM SHIFT. 12 HOUR CHART CHECK/AUDIT DONE. PT START SEDATION VACATION WITH AM SHIFT.
--- NOTE | 2019-11-14 07:30 | NUR ---
SEDATION HELD AT THIS TIME FOR SEDATION VACATION.
--- NOTE | 2019-11-14 07:32 | NUR ---
recived pt on vent with settings as charted breath sounds present bilat sxn pt with min to mod amt secs ett secure pt on sedation vacation to get ready for wean attemptvent plugged into red outlet ambu bag at bedside will continue to monitot t on vent
[2019-11-14] MEDS: hydrALAZINE 20 MG/ML VIAL IVP PRN ×3 (07:54→15:28)
[2019-11-14] MEDS: EZETIMIBE 10 MG TAB PO SCH (08:54)
[2019-11-14] MEDS: amLODIPine 5 MG TAB PO SCH (08:54)
[2019-11-14] MEDS: NIFEdipine 90 MG TABER PO SCH (08:54)
[2019-11-14] MEDS: CLOPIDOGREL 75 MG TAB PO SCH (08:55)
[2019-11-14] MEDS: PANTOPRAZOLE 40 MG INJ VIAL IVP SCH (08:55)
[2019-11-14] MEDS: CARVEDILOL 6.25 MG TAB PO SCH ×2 (08:55→20:57)
[2019-11-14] MEDS: MONTELUKAST SODIUM 10 MG TAB PO SCH (08:55)
[2019-11-14] MEDS: FENOFIBRATE 48 MG TAB PO SCH (08:55)
[2019-11-14] MEDS: LISINOPRIL 10 MG TAB PO SCH (08:55)
[2019-11-14] MEDS: ENOXAPARIN 30 MG/0.3 ML SYR SUBQ SCH (09:00)
[2019-11-14] MEDS: ALBUTEROL 0.083% 2.5 MG/3 ML NEBU INH PRN (09:50)
[2019-11-14] MEDS: IPRATROPIUM 0.02% 0.5 MG/2.5 ML NEBU INH PRN (09:51)
--- NOTE | 2019-11-14 10:34 | NUR ---
PT CAANGED BACK TO AC WITH SETTINGS CHARTED UNABLE TO JORGE CPAP RN AWARE WILL CONTINUE TO MONITOR PT ON VENT
--- NOTE | 2019-11-14 10:48 | NUR ---
PATIENT IS BACK ON AC MODE, SEDATION IS OFF. PATIENT IS TOLERATING WELL. EDUCATED ON REMAINING CALM.
--- NOTE | 2019-11-14 11:10 | NUR ---
PATIENT'S HR INCREASED TO 160'S, CHECKED PATIENT'S TEMP, SHE HAS A FEVER OF 103.4, TYLENOL 650 MG GIVEN. WILL CONTINUE TO MONITOR Addendum: 11/14/19 at 1448 by Nereyda Mann RN WRONG PATIENT
[2019-11-14] MEDS: AZITHROMYCIN 500 MG in DEXTROSE 5% 250 ML IV SCH (12:47)
--- NOTE | 2019-11-14 14:48 | NUR ---
PATIENT'S BP IS 188/103, HYDRALAZINE PRN GIVEN, PATIENT TOLERATED WELL
[2019-11-14] MEDS: LORazepam 2 MG/ML VIAL IVP PRN (15:28)
--- NOTE | 2019-11-14 15:30 | NUR ---
PT RESTLESS THRASHING AROUND RN STARTED SEDATION
--- NOTE | 2019-11-14 15:37 | NUR ---
PLACE PATIENT BACK ON SEDATION, SHE BECAME TACHYCARDIC AND TACHYPNEIC.
--- NOTE | 2019-11-14 17:18 | NUR ---
CONTINUED TO MONITOR PT ON VENT WITH SETTINGS CHARTED BREATH SOUNDS PRESENT BILAT COARSE ETT SECURE SXN PT WITH MIN AMT REDDISH SECS AMBU BAG AT BEDSIDE VENT PLUGGED INTO RED OUTLET
--- NOTE | 2019-11-14 19:15 | NUR ---
RECEIVED PT FROM DAY NURSE FOR CONTINUITY OF CARE. PT RESTING IN BED @ THIS TIME. RASS -2. FLACC 0. PERRL. RESPIRATIONS SYMMETRICAL WITH ETT TO VENT. FI02 @ 30%, TV 550, FLOW 40, RATE 16, PEEP 5. LUNGS CLEAR TO AUSCULTATION THROUGHOUT. BOWEL SOUNDS ACTIVE X4. VITAL AF RUNNING @ 50CC/HR AND 800 CC H20 Q 6 HOURS VIA NG TO RT NARES. ABDOMEN SOFT, ROUND, AND NON-TENDER. INDWELLING CATHETER IN PLACE DRAINING CLEAR, YELLOW URINE TO GRAVITY. NO SEDIMENT NOTED. LEFT FEMORAL CENTRAL LINE WITH TRIPLE LUMEN PATENT WITHOUT S/S OF INFILTRATION. SKIN WARM AND DRY WITH ST TO RT AC NOTED. BED LOW AND LOCKED. CALL LIGHT LEFT WITHIN REACH. WILL CONTINUE TO MONITOR.
[2019-11-14] MEDS: MIDAZOLAM MDV 100 MG in NACL 0.9% 80 ML IV PRN (20:19)
[2019-11-14] MEDS: SIMVASTATIN 20 MG TAB PO SCH (20:56)
[2019-11-14] MEDS: ALLOPURINOL 100 MG TAB PO SCH (20:57)
--- NOTE | 2019-11-14 21:00 | NUR ---
RBS 337 @ THIS TIME. 8 UNITS INSULIN LISPRO ADMINISTERED SC ORDERED. EDUCATED PT ON S/S OF HYPOGLYCEMIA. BED LOW AND LOCKED. CALL LIGHT WITHIN REACH. WILL CONTINUE TO MONITOR.
--- NOTE | 2019-11-14 21:00 | NUR ---
PT RESTING IN BED AT THIS TIME. VAP ORAL CARE PROVIDED. TOLERATED WELL. REPOSITIONED. CATHETER CARE PROVIDED. BED LOW AND LOCKED. CALL LIGHT WITHIN REACH. WILL CONTINUE TO MONITOR.
[2019-11-15] VITALS (102 sets, daily range): BP systolic 96–169; BP diastolic 44–116
--- NOTE | 2019-11-15 | NUR ---
PT RESTING IN BED AT THIS TIME. VSS. FLACC 0. BED LOW AND LOCKED. CALL LIGHT WITHIN REACH. WILL CONTINUE TO MONITOR.
[2019-11-15] MEDS: NACL 0.9% 500 ML IV SCH ×3 (01:56→12:53)
--- NOTE | 2019-11-15 02:00 | NUR ---
pt resting in bed at this time. flacc 0. vss. vap oral care provided. bed low and locked. call light within reach. will continue to monitor.
--- NOTE | 2019-11-15 04:00 | NUR ---
REPOSITIONED. VAP ORAL CARE PROVIDED. HOB REMAINS @ 35 DEGREES WITH VITAL AF RUNNING AT 50CC/HR ORDERED. NO RESIDUAL NOTED. + PLACEMENT VERIFIED VIA AIR FLUSH. SPONGE BATH @ THIS TIME. FARIDEH-CARE PROVIDED. SKIN REMAINS INTACT. VSS. CONTINUING TO MONITOR.
[2019-11-15] MEDS: methylPREDNISolone SS 40 MG/ML VIAL IVP SCH ×2 (05:26→12:53)
[2019-11-15] MEDS: SODIUM CHLORIDE FLUSH 10 ML SYR IVF SCH ×3 (05:27→20:54)
--- NOTE | 2019-11-15 06:00 | NUR ---
REPOSITIONED. VSS. JOSE -3 @ THIS TIME. FLACC 0. SUCTIONED TRACH WITH CREAM COLORED SECRETIONS NOTED. SAFETY PRECAUTIONS IN PLACE. WILL CONTINUE TO MONITOR.
[2019-11-15] MEDS: MIDAZOLAM MDV 100 MG in NACL 0.9% 80 ML IV PRN ×2 (06:06→15:47)
[2019-11-15 06:24] LABS: BASOPHILS % (AUTO) 0.1 % (0.0-2.0); EOSINOPHILS % (AUTO) 0.1 % (0.0-4.0); HEMATOCRIT 32.8 % (36-48); HEMOGLOBIN 10.6 g/dL (12.0-16.0); LYMPHOCYTES # (AUTO) 1.2 K/uL (2.5-16.5); LYMPHOCYTES % (AUTO) 8.3 % (20.5-51.1); MEAN CORPUSCULAR HEMOGLOBIN 29 pg (27-31); MEAN CORPUSCULAR HGB CONC 32 g/dL (33-37); MEAN CORPUSCULAR VOLUME 90.6 fL (80-94); MONOCYTES # (AUTO) 0.5 K/uL (0.8-1.0); MONOCYTES % (AUTO) 3.8 % (1.7-9.3); NEUTROPHILS # (AUTO) 12.5 K/uL (1.8-7.7); NEUTROPHILS % (AUTO) 87.7 % (42.2-75.2); PLATELET COUNT (AUTO) 197 K/uL (140-450); RED BLOOD CELL COUNT(AUTO) 3.63 MIL/uL (4.20-5.40); RED CELL DISTRIBUTION WIDTH 14.7 % (11.6-13.7); WHITE BLOOD COUNT (AUTO) 14.2 K/uL (4.8-10.8)
[2019-11-15 06:34] LABS: ALBUMIN 2.2 g/dL (3.4-5.0); ANION GAP 14.1 (8-16); CARBON DIOXIDE 22.5 mmol/L (21-32); CREATININE 0.7 mg/dL (0.6-1.3); MAGNESIUM 1.7 mg/dL (1.8-2.4); PHOSPHORUS 2.9 mg/dL (2.5-4.9); POTASSIUM 3.6 mmol/L (3.5-5.1); TOTAL BILIRUBIN 0.3 mg/dL (0.0-1.0)
--- NOTE | 2019-11-15 07:00 | NUR ---
RECIVED PT ON VENT WITH SETTINGS CHARTED BREATH SOUNDS PRESENT BILAT CLEAR ETT SECURE SXN PT WITH MIN AMT OFF WHITE SECS AMBU BAG AT BEDSIDE VENT PLUGGED INTO RED OUTLET WILL CONTINUE TO MONITOR PT ON VENT
--- NOTE | 2019-11-15 07:28 | NUR ---
RECEIVED REPORT FROM BEARING PRESS MACHINE OPERATOR RN. PT RESTING IN BED. ON FENTANYL DRIP AT 1.5 MCG/KG/MIN AND VERSED DRIP AT 12 MH/HR. RASS -3. DRY WEIGHT 81.6 KG. SR ON MONITOR. NO SOB OR RESPIRATORY DISTRESS NOTED. ON ETT TO VENT FIO2 30% TV 550 RR 16 PEEP 5. LUNGS CLEAR. NG TUBE IN PLACE. POSITIVE PLACEMENT. 0 RESIDUAL. ON FEEDING VITAL AF AT 50 ML/HR. ABDOMEN SOFT, ROUND AND NON-TENDER. ACTIVE BOWEL SOUND. FC IN PLACE DRAINING YELLOW URINE VIA GRAVITY. EDEMATOUS BOTH UPPER EXTREMITIES. LEFT FEMORAL TRIPLE LUMEN CATH IN PLACE. DRESSING INTACT. NS INFUSING AT 85 ML/HR. FLACC 0. HOB ELEVATED. BED IN LOW POSITION LOCKED. WILL CONTINUE TO MONITOR.
--- NOTE | 2019-11-15 07:28 | NUR ---
GAVE REPORT TO DAY SHIFT FOR CONTINUITY OF CARE. VSS. SAFETY PRECAUTIONS IN PLACE.
[2019-11-15] MEDS: BLOOD GLUCOSE MONITORING 1 DEV DEV FS SCH ×4 (07:31→21:00)
[2019-11-15] MEDS: INSULIN LISPRO SLIDING SCALE 100 UNITS/ML VIAL SUBQ PRN ×4 (07:32→21:14)
[2019-11-15] MEDS: fentaNYL 1 MG in NACL 0.9% 80 ML IV PRN ×2 (07:48→18:40)
--- NOTE | 2019-11-15 08:30 | NUR ---
VAP ORAL CARE PROVIDED. REPOSITIONED. KEPT PT CLEAN AND DRY.
[2019-11-15] MEDS: PANTOPRAZOLE 40 MG INJ VIAL IVP SCH (09:36)
[2019-11-15] MEDS: CLOPIDOGREL 75 MG TAB PO SCH (09:37)
[2019-11-15] MEDS: LISINOPRIL 10 MG TAB PO SCH (09:37)
[2019-11-15] MEDS: FENOFIBRATE 48 MG TAB PO SCH (09:38)
[2019-11-15] MEDS: EZETIMIBE 10 MG TAB PO SCH (09:38)
[2019-11-15] MEDS: NIFEdipine 90 MG TABER PO SCH (09:38)
[2019-11-15] MEDS: CARVEDILOL 6.25 MG TAB PO SCH ×2 (09:39→20:54)
[2019-11-15] MEDS: MONTELUKAST SODIUM 10 MG TAB PO SCH (09:39)
[2019-11-15] MEDS: amLODIPine 5 MG TAB PO SCH (09:40)
[2019-11-15] MEDS: ENOXAPARIN 30 MG/0.3 ML SYR SUBQ SCH (09:43)
--- NOTE | 2019-11-15 10:00 | NUR ---
RN STARTED SEDATION VACATION
--- NOTE | 2019-11-15 10:10 | NUR ---
PT UNABLE TO JORGE WEANING AT THIS TIME
--- NOTE | 2019-11-15 11:00 | NUR ---
SEDATION VACATION COMPLETED. PT PLACED BACK TO SEDATION AT THE SAME RATE.
--- NOTE | 2019-11-15 11:15 | NUR ---
DR. THAPA INTO SEE PT. UPDATED PT STATUS. MADE AWARE OF DECREASED HR UP TO 50. NO NEW ORDER AT THIS TIME.
--- NOTE | 2019-11-15 12:15 | NUR ---
SR ON MONITOR. NO SOB OR RESPIRATORY DISTRESS NOTED. SPO2 100%. VAP ORAL CARE PROVIDED. REPOSITIONED. TOLERATED WELL. CONTINUE ON FEEDING. RESIDUAL 0. HOB ELEVATED.
--- NOTE | 2019-11-15 13:00 | NUR ---
DR. THAPA INTO SEE PT. UPDATED PT STATUS. MADE AWARE OF ELEVATED HR UP TO 158. NO NEW ORDER AT THIS TIME. Addendum: 11/15/19 at 1743 by Michelle Hester RN WRONG PT CHARTING.
[2019-11-15] MEDS: AZITHROMYCIN 500 MG in DEXTROSE 5% 250 ML IV SCH (13:18)
--- NOTE | 2019-11-15 13:30 | NUR ---
INCREASED FI02 TO .45 RN AWARE
--- NOTE | 2019-11-15 15:02 | NUR ---
11/15/19 RD FOLLOW UP COMPLETED PLEASE REFER TO NUTRITION ASSESSMENT UNDER CARE ACTIVITY FOR ESTIMATED NUTRITIONAL NEEDS. 1. CONTINUE VITAL AF @ 50 ML/HR X 24 HOURS -THIS WILL PROVIDE A VOLUME OF 1200 ML, 1440 KCAL, AND 90 GM PROTEIN. IT MEETS 94% OF ESTIMATED ENERGY AND 100 % OF PROTEIN NEEDS. 2. CONTINUE FREE WATER FLUSH OF 80 ML Q6H. 3. IF AND WHEN PT IS EXTUBATED, CONSIDER SWALLOW EVALUATION TO START A PO DIET. 4. RD TO FOLLOW-UP 2-3 DAYS, HIGH RISK. SHAQUILLE HALL, MICHELLE
--- NOTE | 2019-11-15 15:37 | NUR ---
RECEIVED CALL FROM DR. PONCE. ORDERED TO RESCEDULE SOLUMEDROL 40MG IVP TO Q DAILY AND ORDERED NPH 10 UNIT SUBQ Q12H. WILL CARRYOUT ORDER. MADE AWARE OF LOW HR UP TO 45.
--- NOTE | 2019-11-15 16:45 | NUR ---
VAP ORAL CARE PROVIDED. CATHETER CARE DONE. REPOSITIONED. TOLERATED WELL. WILL CONTINUE TO MONITOR.
--- NOTE | 2019-11-15 17:30 | NUR ---
CONTINUED TO MONITOR PT ON VENT WITH SETTINGS CHARTED BREATH SOUNDS PRESENT BILAT CLEAR SXN PT WITH MIN AMT REDDISH SECS AMBU BAG AT BEDSIDE VENT PLUGGED INTO RED OUTLET
[2019-11-15] MEDS: IPRATROPIUM 0.02% 0.5 MG/2.5 ML NEBU INH PRN (19:03)
[2019-11-15] MEDS: ALBUTEROL 0.083% 2.5 MG/3 ML NEBU INH PRN (19:03)
--- NOTE | 2019-11-15 19:13 | NUR ---
REPORT GIVEN TO [employer]IG ASSEMBLER RN FOR CONTINUITY OF CARE.
[2019-11-15] MEDS: ALLOPURINOL 100 MG TAB PO SCH (20:54)
[2019-11-15] MEDS: SIMVASTATIN 20 MG TAB PO SCH (20:54)
[2019-11-15] MEDS: INSULIN NPH HUM/REG INSULIN HM 100 UNIT/ML 10 ML VIAL SUBQ SCH (21:15)
--- NOTE | 2019-11-15 23:45 | NUR ---
RESPIRATORY AT BEDSIDE. BREATHING TX ADMINISTERED ORDERED. SUCTIONED. TOLERATED WELL. SAFETY PRECAUTIONS IN PLACE.
[2019-11-16] VITALS (101 sets, daily range): BP systolic 94–179; BP diastolic 42–110
--- NOTE | 2019-11-16 | NUR ---
RECEIVED PT FROM DAY NURSE FOR CONTINUITY OF CARE. PT RESTING IN BED @ THIS TIME. RASS -2. FLACC 0. PERRL. RESPIRATIONS SYMMETRICAL WITH ETT TO VENT. FI02 @ 30%, TV 550, FLOW 40, RATE 16, PEEP 5. LUNGS CLEAR TO AUSCULTATION THROUGHOUT. BOWEL SOUNDS ACTIVE X4. VITAL AF RUNNING @ 50CC/HR AND 80 CC H20 Q 6 HOURS VIA NG TO RT NARES. ABDOMEN SOFT, ROUND, AND NON-TENDER. INDWELLING CATHETER IN PLACE DRAINING CLEAR, YELLOW URINE TO GRAVITY. NO SEDIMENT NOTED. LEFT FEMORAL CENTRAL LINE WITH TRIPLE LUMEN PATENT WITHOUT S/S OF INFILTRATION. SKIN WARM AND DRY WITH ST TO RT AC NOTED. BED LOW AND LOCKED. CALL LIGHT LEFT WITHIN REACH. WILL CONTINUE TO MONITOR. Addendum: 11/16/19 at 0019 by Astrid Flowers RN ERROR SHOULD BE ENTERED AT 1999.
[2019-11-16] MEDS: NACL 0.9% 500 ML IV SCH ×3 (00:45→09:18)
[2019-11-16] MEDS: MIDAZOLAM MDV 100 MG in NACL 0.9% 80 ML IV PRN (03:05)
[2019-11-16] MEDS: fentaNYL 1 MG in NACL 0.9% 80 ML IV PRN (03:08)
[2019-11-16] MEDS: SODIUM CHLORIDE FLUSH 10 ML SYR IVF SCH ×3 (05:00→21:00)
[2019-11-16 06:29] LABS: BASOPHILS % (AUTO) 0.1 % (0.0-2.0); EOSINOPHILS % (AUTO) 0.2 % (0.0-4.0); HEMATOCRIT 33.5 % (36-48); HEMOGLOBIN 10.6 g/dL (12.0-16.0); LYMPHOCYTES # (AUTO) 3.3 K/uL (2.5-16.5); LYMPHOCYTES % (AUTO) 17.3 % (20.5-51.1); MEAN CORPUSCULAR HEMOGLOBIN 29 pg (27-31); MEAN CORPUSCULAR HGB CONC 32 g/dL (33-37); MEAN CORPUSCULAR VOLUME 90.9 fL (80-94); MONOCYTES # (AUTO) 2.1 K/uL (0.8-1.0); MONOCYTES % (AUTO) 10.9 % (1.7-9.3); NEUTROPHILS # (AUTO) 13.7 K/uL (1.8-7.7); NEUTROPHILS % (AUTO) 71.5 % (42.2-75.2); PLATELET COUNT (AUTO) 201 K/uL (140-450); RED BLOOD CELL COUNT(AUTO) 3.69 MIL/uL (4.20-5.40); RED CELL DISTRIBUTION WIDTH 14.7 % (11.6-13.7); WHITE BLOOD COUNT (AUTO) 19.1 K/uL (4.8-10.8)
[2019-11-16] MEDS: BLOOD GLUCOSE MONITORING 1 DEV DEV FS SCH ×4 (06:40→21:00)
[2019-11-16] MEDS: INSULIN LISPRO SLIDING SCALE 100 UNITS/ML VIAL SUBQ PRN ×4 (06:42→21:23)
--- NOTE | 2019-11-16 06:51 | NUR ---
rec'd pt on carescape vent settings ac 16 vt 500 peep 5 fio2 30% alarms on and audible and ambu bag at side of vent and vent is plugged into red outlet, no hhn needed at this time no sob or distress noted b\s are diminished bilaterally, sxn pt small amt of white secretions, pt is orally intubated with 7.5 et tube secured with anchor fast at 23 cm and pt is resting
--- NOTE | 2019-11-16 06:58 | NUR ---
rec'd pt on carescape vent settings ac 12 vt 500 peep 5 fio2 30% alarms on and audible and ambu bag at side of vent and vent is plugged into red outlet, sxn pt small amt of clear secretions b\s are coarse bilaterally, and pt is trach with portex 7 pt is resting
--- NOTE | 2019-11-16 07:28 | NUR ---
REPORT GIVEN TO DAY SHIFT RN FOR CONTINUITY OF CARE.
--- NOTE | 2019-11-16 07:30 | NUR ---
RECEIVED REPORT FROM SENIOR APPLICATIONS ARCHITECT RN. UNABLE TO MAKE NEEDS KNOWN OR FOLLOW COMMANDS. PT IS SEDATED, RASS -3. PT IS AFEBRILE. FLACC 0. SINUS BRADYCARDIA ON MONITOR. S1+S2 HEARD. ETT TO VENT W/ SETTINGS: FIO2 30%, TV 550, R16 AND PEEP 5. RHONCHI HEARD BILATERALLY. BREATHING EVEN AND UNLABORED. NGT IN PLACE TO RIGHT NARES, PLACEMENT CONFIRMED. NGT TO FEEDING VITAL AF AT 50ML/HR, FWF 80 ML Q6H. NO RESIDUALS NOTED. ABDOMEN ROUND, SOFT AND NONDISTENDED. BOWEL SOUNDS ACTIVE. CENTRAL LINE TLC TO RIGHT FEMORAL PATENT AND INTACT, RUNNING IVF NS AT 85 ML/HR, VERSED AT 5 MG/HR AND F[place]ANYL AT 122.4 MCG/HR (1.5 MCG/KG/HR) DRY WT 81.6 [address] COLLINS CATHETER IN PLACE DRAINING YELLOW URINE TO GRAVITY. SKIN IS DRY AND WARM TO TOUCH. SKIN TEAR NOTED TO RIGHT ANTECUBITAL AREA. PULSES PALPABLE IN ALL EXTREMITIES. HOB AT 30 DEGREES, BED IN LOWEST POSITION LOCKED, CALL LIGHT WITHIN REACH. NO SIGNS OF DISTRESS NOTED AT THIS TIME. WILL CONTINUE TO MONITOR.
[2019-11-16] MEDS: CARVEDILOL 6.25 MG TAB PO SCH ×2 (09:05→21:15)
[2019-11-16] MEDS: PANTOPRAZOLE 40 MG INJ VIAL IVP SCH (09:05)
[2019-11-16] MEDS: FENOFIBRATE 48 MG TAB PO SCH (09:06)
[2019-11-16] MEDS: methylPREDNISolone SS 40 MG/ML VIAL IVP SCH (09:06)
[2019-11-16] MEDS: LISINOPRIL 10 MG TAB PO SCH (09:06)
[2019-11-16] MEDS: CLOPIDOGREL 75 MG TAB PO SCH (09:06)
[2019-11-16] MEDS: MONTELUKAST SODIUM 10 MG TAB PO SCH (09:06)
[2019-11-16] MEDS: EZETIMIBE 10 MG TAB PO SCH (09:06)
[2019-11-16] MEDS: INSULIN NPH HUM/REG INSULIN HM 100 UNIT/ML 10 ML VIAL SUBQ SCH ×2 (09:08→21:14)
[2019-11-16] MEDS: ENOXAPARIN 30 MG/0.3 ML SYR SUBQ SCH (09:15)
[2019-11-16] MEDS: NIFEdipine 90 MG TABER PO SCH (09:18)
[2019-11-16] MEDS: amLODIPine 5 MG TAB PO SCH (09:19)
--- NOTE | 2019-11-16 09:30 | NUR ---
MEDICATIONS ADMINISTERED ORDERED. PT TOLERATED WELL.
--- NOTE | 2019-11-16 09:59 | NUR ---
PT PLACED ON CPAP 5 PS 10 YENY GRIGGS NOTIFIED
--- NOTE | 2019-11-16 10:05 | NUR ---
DR. ONEILL IN TO SEE PT. WILL FOLLOW UP ON ORDERS.
--- NOTE | 2019-11-16 10:30 | NUR ---
PT SEEN BY DR. MADRID. NO NEW ORDER RECEIVED AT THIS TIME.
--- NOTE | 2019-11-16 10:33 | NUR ---
PROPOFOL STARTED ORDERED. DRY WEIGHT 81.6 KG.
--- NOTE | 2019-11-16 12:05 | NUR ---
VAP ORAL CARE GIVEN. REPOSITIONED FOR COMFORT AND OFF LOADING PRESSURE AREAS. NO SIGNS OF DISTRESS AT THIS TIME. SAFETY PRECAUTIONS IN PLACE.
[2019-11-16] MEDS: LORazepam 2 MG/ML VIAL IVP PRN ×2 (12:24→21:24)
[2019-11-16] MEDS: AZITHROMYCIN 500 MG in DEXTROSE 5% 250 ML IV SCH (12:36)
[2019-11-16] MEDS: ALBUTEROL SULFATE/IPRATROPIU 3 ML SOL IH SCH ×2 (13:17→19:56)
[2019-11-16] MEDS: hydrALAZINE 20 MG/ML VIAL IVP PRN (14:34)
--- NOTE | 2019-11-16 15:50 | NUR ---
RECEIVED CALL FROM DAUGHTER PURA. UPDATES GIVEN ON PT'S CONDITION.
[2019-11-16] MEDS: PROPOFOL 1000 MG/100 ML PREMIX 100 ML IV PRN ×2 (15:58→22:50)
--- NOTE | 2019-11-16 16:05 | NUR ---
VAP ORAL CARE GIVEN. TURNED AND REPOSITIONED. COLLINS CARE GIVEN. SAFETY MEASURES IN PLACE. FLACC 0. RASS -1. WILL CONTINUE TO MONITOR.
--- NOTE | 2019-11-16 18:02 | NUR ---
TURNED AND REPOSITIONED. PT IS ON PROPOFOL DRIP, RASS -1. FLACC 0. NO S/SX OF ACUTE DISTRESS NOTED. SAFETY PRECAUTIONS IN PLACE.
--- NOTE | 2019-11-16 19:15 | NUR ---
RECEIVED PT FROM DAY NURSE FOR CONTINUITY OF CARE. PT RESTING IN BED @ THIS TIME. RASS -1. FLACC 0. PERRL. RESPIRATIONS SYMMETRICAL WITH ETT TO VENT. FI02 @ 30%, TV 550, FLOW 40, RATE 16, PEEP 5. LUNGS CLEAR TO AUSCULTATION THROUGHOUT. BOWEL SOUNDS ACTIVE X4. VITAL AF RUNNING @ 50CC/HR AND 80 CC H20 Q 6 HOURS VIA NG TO RT NARES. PLACEMENT VERIFIED WITH AIR BOLUS. ZERO RESIDUAL NOTED AT THIS TIME. ABDOMEN SOFT, ROUND, AND NON-TENDER. INDWELLING CATHETER IN PLACE DRAINING CLEAR, YELLOW URINE TO GRAVITY. NO SEDIMENT NOTED. LEFT FEMORAL CENTRAL LINE WITH TRIPLE LUMEN PATENT WITHOUT S/S OF INFILTRATION. PROPOFOL CURRENTLY INFUSING PER ORDERS. SKIN WARM AND DRY WITH ST TO RT AC NOTED. NO DRAINAGE. SAFETY PRECAUTIONS IN PLACE. Addendum: 11/16/19 at 2304 by Astrid Flowers RN DRY WEIGHT 81.6KG. PROPOFOL RUNNING @ 30MCG/KG/MIN.
--- NOTE | 2019-11-16 19:17 | NUR ---
BEDSIDE REPORT GIVEN TO BREAST BUFFER RN FOR CONTINUITY OF CARE. NO S/SX OF DISTRESS NOTED AT THIS TIME.
[2019-11-16] MEDS: BUDESONIDE 0.5 MG/2 ML NEBU INH SCH (19:56)
--- NOTE | 2019-11-16 19:56 | NUR ---
RECEIVED PT FROM AM SHIFT MANAGED CARE PROVIDER. PT ON VENT SETTINGS ORDERED. PT IS INTUBATED WITH ETT SIZE 7.5 @ 23 CM AND SECURED ANCHOR-FAST. NO RESPIRATORY DISTRESS NOTED AT THIS TIME. COARSE BREATH SOUNDS AND SP02 OF 98%. HHN TX GIVEN ORDERED WITH NO ADVERSE REACTION. VENT PLUGGED IN RED OUTLET, BVM AT BEDSIDE, ALARMS SET AND AUDIBLE, HOB>30. SX SMALL YELLOW THICK SECRETIONS FROM ETT. AIRWAY IS PATENT. WILL CONTINUE TO MONITOR PT.
[2019-11-16] MEDS: ALLOPURINOL 100 MG TAB PO SCH (21:15)
[2019-11-16] MEDS: SIMVASTATIN 20 MG TAB PO SCH (21:15)
--- NOTE | 2019-11-16 21:45 | NUR ---
PT SENT TO CT @ THIS TIME. VSS. FLACC 0. JOSE -1.
--- NOTE | 2019-11-16 22:00 | NUR ---
VAP ORAL CARE PROVIDED. SUCTIONED WITH WHITE, THIN, SECRETIONS. CATHETER CARE PROVIDED @ THIS TIME. TOLERATED WELL. SAFTER PRECAUTIONS IN PLACE. WILL CONTINUE TO MONITOR.
[2019-11-17] VITALS (102 sets, daily range): BP systolic 50–160; BP diastolic 31–106
--- NOTE | 2019-11-17 | NUR ---
REPOSITIONED. VSS. FLACC 0. PT RESTING IN BED. JOSE SCORE -1.
[2019-11-17] MEDS: ALBUTEROL SULFATE/IPRATROPIU 3 ML SOL IH SCH ×4 (01:30→20:00)
[2019-11-17] MEDS: SODIUM CHLORIDE FLUSH 10 ML SYR IVF SCH ×3 (04:19→21:00)
--- NOTE | 2019-11-17 07:02 | NUR ---
RECEIVED PT ON CARESCAPE ON DOCUMENTED SETTINGS, ALARMS ARE ON AND AUDIBLE, PTS ETT SIZE 7.5 IS SECURE [address] FAST IN PL[address], PT IN HF QUIET PT IS RESTRAINED, HHNS GIVEN I\L , BMV HOB, VENT PLUGGED INTO RED OUTLET, VENT PLUGGED INTO RED OUTLET, WILL CONTINUE TO MONITOR
[2019-11-17] MEDS: BUDESONIDE 0.5 MG/2 ML NEBU INH SCH ×2 (07:12→20:00)
[2019-11-17] MEDS: BLOOD GLUCOSE MONITORING 1 DEV DEV FS SCH ×4 (07:18→21:00)
--- NOTE | 2019-11-17 07:29 | NUR ---
REPORT GIVEN TO DAY SHIFT FOR CONTINUITY OF CARE.
--- NOTE | 2019-11-17 07:30 | NUR ---
RECEIVED REPORT FROM SINGER AND UNLOADER RN. PT IS SEDATED, RASS -1. AFEBRILE. FLACC 0. DOES NOT FOLLOW COMMANDS. SINUS BRADYCARDIA ON MONITOR. S1+S2 HEARD. PULSES PALPABLE IN ALL EXTREMITIES. ETT TO VENT W/ SETTINGS: FIO2 30%, TV 550, R16 AND PEEP 5. LUNGS SOUND CLEAR BILATERALLY. BREATHING EVEN AND UNLABORED. ABDOMEN ROUND, SOFT AND NONDISTENDED W/ ACTIVE BOWEL SOUNDS. NGT IN PLACE TO RIGHT NARES, PLACEMENT CONFIRMED. NGT TO FEEDING VITAL AF AT 50ML/HR, FWF 80 ML Q6H. NO RESIDUALS NOTED. CENTRAL LINE TLC TO RIGHT FEMORAL PATENT AND INTACT, RUNNING PROPOFOL DRIP AT 30 MCG/KG/MIN, DRY WT 81.6 [address]G. COLLINS CATHETER IN PLACE DRAINING YELLOW URINE TO GRAVITY DRAINAGE BAG. SKIN IS DRY AND WARM TO TOUCH. HEALED SKIN TEAR NOTED TO RIGHT ANTECUBITAL AREA. HOB AT 30 DEGREES, BED IN LOWEST POSITION LOCKED, CALL LIGHT WITHIN REACH. NO SIGNS OF DISTRESS NOTED AT THIS TIME. WILL CONTINUE TO MONITOR.
[2019-11-17] MEDS: LISINOPRIL 10 MG TAB PO SCH (08:19)
[2019-11-17] MEDS: amLODIPine 5 MG TAB PO SCH (08:19)
[2019-11-17] MEDS: methylPREDNISolone SS 40 MG/ML VIAL IVP SCH (08:19)
[2019-11-17] MEDS: PANTOPRAZOLE 40 MG INJ VIAL IVP SCH (08:19)
[2019-11-17] MEDS: FENOFIBRATE 48 MG TAB PO SCH (08:20)
[2019-11-17] MEDS: CLOPIDOGREL 75 MG TAB PO SCH (08:20)
[2019-11-17] MEDS: NIFEdipine 90 MG TABER PO SCH (08:20)
[2019-11-17] MEDS: MONTELUKAST SODIUM 10 MG TAB PO SCH (08:20)
[2019-11-17] MEDS: EZETIMIBE 10 MG TAB PO SCH (08:20)
[2019-11-17] MEDS: ENOXAPARIN 30 MG/0.3 ML SYR SUBQ SCH (08:21)
[2019-11-17] MEDS: CARVEDILOL 6.25 MG TAB PO SCH ×2 (08:29→21:00)
[2019-11-17] MEDS: INSULIN NPH HUM/REG INSULIN HM 100 UNIT/ML 10 ML VIAL SUBQ SCH ×2 (08:35→21:39)
--- NOTE | 2019-11-17 09:00 | NUR ---
MEDICATIONS ADMINISTERED ORDERED. PT TOLERATED WELL.
[2019-11-17 09:52] LABS: BASOPHILS # (AUTO) 0.1 K/uL (0.00-0.22); BASOPHILS % (AUTO) 0.3 % (0.0-2.0); EOSINOPHILS # (AUTO) 0.4 K/uL (0-0.4); EOSINOPHILS % (AUTO) 2.2 % (0.0-4.0); HEMATOCRIT 36.2 % (36-48); HEMOGLOBIN 11.6 g/dL (12.0-16.0); LYMPHOCYTES # (AUTO) 4.6 K/uL (2.5-16.5); MEAN CORPUSCULAR HEMOGLOBIN 29 pg (27-31); MEAN CORPUSCULAR HGB CONC 32 g/dL (33-37); MEAN CORPUSCULAR VOLUME 90.7 fL (80-94); MONOCYTES # (AUTO) 1.8 K/uL (0.8-1.0); MONOCYTES % (AUTO) 8.8 % (1.7-9.3); NEUTROPHILS # (AUTO) 13.7 K/uL (1.8-7.7); PLATELET COUNT (AUTO) 192 K/uL (140-450); RED BLOOD CELL COUNT(AUTO) 3.99 MIL/uL (4.20-5.40); RED CELL DISTRIBUTION WIDTH 14.5 % (11.6-13.7); WHITE BLOOD COUNT (AUTO) 20.6 K/uL (4.8-10.8)
[2019-11-17 10:14] LABS: ANION GAP 14.4 (8-16); CARBON DIOXIDE 22.7 mmol/L (21-32); CREATININE 0.7 mg/dL (0.6-1.3); POTASSIUM 3.1 mmol/L (3.5-5.1)
[2019-11-17] MEDS: PROPOFOL 1000 MG/100 ML PREMIX 100 ML IV PRN ×3 (10:25→21:38)
[2019-11-17 10:30] LABS: LYMPHOCYTES % (AUTO) 22.3 % (20.5-51.1); NEUTROPHILS % (AUTO) 66.4 % (42.2-75.2)
[2019-11-17 10:46] LABS: MAGNESIUM 1.7 mg/dL (1.8-2.4); PHOSPHORUS 3.2 mg/dL (2.5-4.9)
[2019-11-17] MEDS: MAGNESIUM OXIDE 400 MG TAB PO PRN (11:44)
[2019-11-17] MEDS: INSULIN LISPRO SLIDING SCALE 100 UNITS/ML VIAL SUBQ PRN ×2 (11:45→16:29)
--- NOTE | 2019-11-17 12:21 | NUR ---
DR. ONEILL IN TO SEE PT. WILL FOLLOW UP ON ORDERS.
[2019-11-17] MEDS: AZITHROMYCIN 500 MG in DEXTROSE 5% 250 ML IV SCH (12:40)
[2019-11-17] MEDS ORDERED: MAG SULF 2000 MG/WATER PREMIX 50 ML IV SCH (13:00)
[2019-11-17] MEDS ORDERED: POTASSIUM CHLORIDE 20% 40 MEQ/15 ML UDC NG SCH (13:05)
[2019-11-17] MEDS: LORazepam 2 MG/ML VIAL IVP PRN (13:59)
--- NOTE | 2019-11-17 14:00 | NUR ---
TURNED AND REPOSITIONED PT. PT STILL ON PROPOFOL DRIP. FLACC 0. RASS -1. TOLERATING TUBE FEEDING WELL. WILL CONTINUE TO MONITOR.
--- NOTE | 2019-11-17 15:28 | NUR ---
PT COUGHING, SUCTIONED SMALL AMOUNT OF WHITE SECRETIONS. VSS. NO S/SX OF ACUTE DISTRESS NOTED.
[2019-11-17] MEDS: POTASSIUM CHLORIDE 20% 40 MEQ/15 ML UDC NG SCH ×2 (15:56→21:36)
--- NOTE | 2019-11-17 16:45 | NUR ---
PT SEEN AND EXAMINED BY DR. MADRID. NO NEW ORDER RECEIVED AT THIS TIME.
--- NOTE | 2019-11-17 19:15 | NUR ---
RECEIVED REPORT FROM AM NURSE. PT AT BED EYES CLOSED, PERRL 3MM, SLUGGISH, SEDATED RASS -1, BREATHING REGULARLY, TRACH TO VENT, SETTINGS, AC/VC FIO2 30% TV 550, RR 16, PEEP 5, LUNG SOUNDS CLEAR THROUGHOUT, DIMINISHED AT BASES, HEART RATE REGULAR, S1S2 PRESENT, SR ON MONITOR, CAP REFILL <3S, PULSES 2+ BILATERAL UPPER AND LOWER EXTREMITIES, ABDOMEN, SOFT, ROUND, NONDISTENDED, NONTENDER, NGTUBE IN PLACE RUNNING VITAL AF AT 50 ML/HR WITH WATER FLUSH 80 ML Q6HR, COLLINS IN PLACE, DRAINING CLEAR, YELLOW URINE, PT HAS GENERALIZED WEAKNESS, SKIN WARM, DRY, COLOR APPROPRIATE TO ETHNICITY, SKIN NON INTACT DRY WOUND ON RIGHT AC, VERSATYL DRESSING IN PLACE. PT HAS LEFT FEMORAL CENTRAL LINE, TRIPLE LUMEN, RUNNING NS AT 5 ML/HR, PROPOFOL RUNNING AT 30 MCG/KG/MIN, DRY WEIGHT 81.6 KG. HOB 30 DEGREES, SIDE RAILS UP X2, BED AT LOWEST POSITION. Addendum: 11/17/19 at 2256 by Jose Lopez RN CORRECTION: PT IS ETT TO VENT
--- NOTE | 2019-11-17 19:28 | NUR ---
BEDSIDE REPORT GIVEN TO SET UP OPERATOR TOOL RN FOR CONTINUITY OF CARE. NO S/SX OF DISTRESS NOTED AT THIS TIME.
--- NOTE | 2019-11-17 20:21 | NUR ---
RECEIVED PT FROM AM SHIFT EARRING MAKER. PT ON VENT SETTINGS ORDERED. PT IS INTUBATED WITH ETT SIZE 7.5 @ 23 CM AND SECURED ANCHOR-FAST. NO RESPIRATORY DISTRESS NOTED AT THIS TIME. COARSE BREATH SOUNDS AND SP02 OF 95%. HHN TX GIVEN ORDERED WITH NO ADVERSE REACTION. VENT PLUGGED IN RED OUTLET, BVM AT BEDSIDE, ALARMS SET AND AUDIBLE, HOB>30. SX SMALL YELLOW THICK SECRETIONS FROM ETT. AIRWAY IS PATENT. WILL CONTINUE TO MONITOR PT.
--- NOTE | 2019-11-17 21:10 | NUR ---
MEDICATION GIVEN. VAP ORAL CARE PERFORMED. SUCTIONED MODERATE AMOUNT OF WHITE SPUTUM. PT TOLERATED WELL. WILL CONTINUE TO MONITOR.
[2019-11-17] MEDS ORDERED: POTASSIUM CHLORIDE 20% 40 MEQ/15 ML UDC ONE (21:31)
[2019-11-17] MEDS: QUEtiapine FUMARATE 25 MG TAB NG SCH (21:36)
[2019-11-17] MEDS: SIMVASTATIN 20 MG TAB PO SCH (21:36)
[2019-11-17] MEDS: ALLOPURINOL 100 MG TAB PO SCH (21:36)
--- NOTE | 2019-11-17 23:15 | NUR ---
PT AT BED EYES CLOSED, BREATHING REGULARLY, WILL CONTINUE TO MONITOR.
[2019-11-18] VITALS (61 sets, daily range): BP systolic 106–168; BP diastolic 49–86
--- NOTE | 2019-11-18 01:15 | NUR ---
VAP ORAL CARE PERFORMED, SUCTIONED SCANT WHITE MUCOUS, PT TOLERATED WELL. REPOSITIONED PT, WILL CONTINUE TO MONITOR.
[2019-11-18] MEDS: ALBUTEROL SULFATE/IPRATROPIU 3 ML SOL IH SCH ×4 (01:35→19:24)
[2019-11-18] MEDS: PROPOFOL 1000 MG/100 ML PREMIX 100 ML IV PRN ×3 (02:27→08:17)
--- NOTE | 2019-11-18 03:00 | NUR ---
PT AT BED EYES CLOSED BREATHING REGULARLY ETT TO VENT. REPOSITIONED PT. PT TOLERATED WELL.
--- NOTE | 2019-11-18 05:15 | NUR ---
VAP ORAL CARE PERFORMED. SUCTIONED MODERATE WHITE THICK MUCOUS. PT TOLERATED WELL.
[2019-11-18] MEDS: SODIUM CHLORIDE FLUSH 10 ML SYR IVF SCH ×3 (05:40→21:11)
--- NOTE | 2019-11-18 06:32 | NUR ---
RECEIVED PT ON DOCUMENTED SETTINGS, ALARMS ARE ON AND AUDIBLE, PTS ETT SIZE 7.5 IS SECURE 23 CM PT IN HF QUIET PT IS RESTRAINED BS COARSE, HHNS GIVEN I\L, BMV HOB VENT PLUGGED INTO RED OUTLET, WILL CONTINUE TO MONITOR
[2019-11-18 06:34] LABS: ANION GAP 12.8 (8-16); CARBON DIOXIDE 23.1 mmol/L (21-32); CREATININE 0.7 mg/dL (0.6-1.3); POTASSIUM 3.9 mmol/L (3.5-5.1)
[2019-11-18] MEDS: BUDESONIDE 0.5 MG/2 ML NEBU INH SCH ×2 (06:44→19:24)
[2019-11-18 06:45] LABS: PHOSPHORUS 2.9 mg/dL (2.5-4.9)
[2019-11-18 06:51] LABS: BASOPHILS % (AUTO) 0.2 % (0.0-2.0); EOSINOPHILS # (AUTO) 0.3 K/uL (0-0.4); HEMATOCRIT 29.8 % (36-48); HEMOGLOBIN 9.6 g/dL (12.0-16.0); LYMPHOCYTES # (AUTO) 3.8 K/uL (2.5-16.5); LYMPHOCYTES % (AUTO) 22.7 % (20.5-51.1); MEAN CORPUSCULAR HEMOGLOBIN 29 pg (27-31); MEAN CORPUSCULAR HGB CONC 32 g/dL (33-37); MEAN CORPUSCULAR VOLUME 91.2 fL (80-94); MONOCYTES # (AUTO) 1.5 K/uL (0.8-1.0); MONOCYTES % (AUTO) 9.1 % (1.7-9.3); PLATELET COUNT (AUTO) 176 K/uL (140-450); RED BLOOD CELL COUNT(AUTO) 3.26 MIL/uL (4.20-5.40); WHITE BLOOD COUNT (AUTO) 16.7 K/uL (4.8-10.8)
--- NOTE | 2019-11-18 07:30 | NUR ---
`RECEIVED REPORT FROM JOHNATHAN SAINI. PT ORAL ETT TO VENT AC16 TV 550 FIO2 30% PEEP OF 5O2 SAT 94% ON PROPOFOL IV DRIP DRY WEIGHT AT 81,6KG. NG TUBE FEEDING WITH VITAL AF. ABDOMEN LARGE SOFT.CENTAL LINE ON LEFT FEM. COLLINS CATH DRAIN CLEAR YELLOW URINE.
--- NOTE | 2019-11-18 07:49 | NUR ---
CHANGE OF SHIFT REPORT GIVEN TO AM NURSE
[2019-11-18] MEDS: BLOOD GLUCOSE MONITORING 1 DEV DEV FS SCH ×4 (08:18→21:30)
[2019-11-18] MEDS: MONTELUKAST SODIUM 10 MG TAB PO SCH (08:52)
[2019-11-18] MEDS: CLOPIDOGREL 75 MG TAB PO SCH (08:52)
[2019-11-18] MEDS: NIFEdipine 90 MG TABER PO SCH (08:53)
[2019-11-18] MEDS: EZETIMIBE 10 MG TAB PO SCH (08:53)
[2019-11-18] MEDS: CARVEDILOL 6.25 MG TAB PO SCH ×2 (08:53→21:10)
[2019-11-18] MEDS: FENOFIBRATE 48 MG TAB PO SCH (08:54)
[2019-11-18] MEDS: PANTOPRAZOLE 40 MG INJ VIAL IVP SCH (08:54)
[2019-11-18] MEDS: methylPREDNISolone SS 40 MG/ML VIAL IVP SCH (08:55)
[2019-11-18] MEDS: LISINOPRIL 10 MG TAB PO SCH (09:00)
[2019-11-18] MEDS: INSULIN NPH HUM/REG INSULIN HM 100 UNIT/ML 10 ML VIAL SUBQ SCH ×2 (09:00→21:00)
[2019-11-18] MEDS: amLODIPine 5 MG TAB PO SCH (09:00)
--- NOTE | 2019-11-18 09:00 | NUR ---
FEEDING TURNOFF AND OFF PROPOFOL ON SEDATION VACATION.
[2019-11-18] MEDS: ENOXAPARIN 30 MG/0.3 ML SYR SUBQ SCH (09:01)
--- NOTE | 2019-11-18 10:45 | NUR ---
LASIX 40MG IV GIVEN. ORDER BY DR. ONEILL
[2019-11-18] MEDS ORDERED: FUROSEMIDE 40 MG/4 ML VIAL IVP SCH (11:00)
--- NOTE | 2019-11-18 11:30 | NUR ---
BL. GLUCOSE 89 NO INSULIN COVER NEEDED.
[2019-11-18] MEDS ORDERED: cefTRIAXone 1,000 MG VIAL ONE (11:36)
--- NOTE | 2019-11-18 11:55 | NUR ---
PT EXTUBATED W\O INCIDENT PLACED ON HHN
--- NOTE | 2019-11-18 12:30 | NUR ---
ORALL CARE WITH VAP KIT GIVEN,
--- NOTE | 2019-11-18 13:00 | NUR ---
NG TUBE FEEDING RESUME .
--- NOTE | 2019-11-18 14:00 | NUR ---
D/C SOFT WRIST RESTRAIN.
--- NOTE | 2019-11-18 15:00 | NUR ---
PT AWAKE ALERT FOLLOW COMMAND.
[2019-11-18] MEDS: AZITHROMYCIN 500 MG in DEXTROSE 5% 250 ML IV SCH (15:08)
--- NOTE | 2019-11-18 16:00 | NUR ---
REPOSITION SPONGE BATH AND ORAL CARE GIVEN.
[2019-11-18] MEDS: INSULIN LISPRO SLIDING SCALE 100 UNITS/ML VIAL SUBQ PRN (16:07)
--- NOTE | 2019-11-18 16:41 | NUR ---
11/18/19 RD FOLLOW UP COMPLETED PLEASE REFER TO NUTRITION ASSESSMENT UNDER CARE ACTIVITY FOR ESTIMATED NUTRITIONAL NEEDS. 1. RECOMMEND A SWALLOW EVALUATION TO ADVANCE TO PO DIET. 2. IF PATIENT FAILS SWALLOW EVALUATION, CONSIDER CONTINUING VITAL AF @ 50 ML/HR X 24 HOURS -THIS WILL PROVIDE A VOLUME OF 1200 ML, 1440 KCAL, AND 90 GM PROTEIN. IT MEETS 100% OF ESTIMATED ENERGY AND PROTEIN NEEDS. 3. CONTINUE FREE WATER FLUSH OF 80 ML Q6H IF PT DOES NOT PASS SWALLOW EVAL 4. RD TO FOLLOW-UP 2-3 DAYS, HIGH RISK [facility] [facility]ALL RD
--- NOTE | 2019-11-18 17:00 | NUR ---
BL. GLUCOSE 112 NO INSULIN NEEDED.
--- NOTE | 2019-11-18 19:30 | NUR ---
RECEIVED REPORT FROM DAY SHIFT. PT AWAKE AND VERBALLY RESPONSIVE. ALERT TO PERSON ONLY. DENIES PAIN UPON QUESTIONING. FLACC 0. PERRL. ON RA, SATING 98%. RESPIRATIONS EVEN AND UNLABORED. RHONCHI NOTED THROUGHOUT. SKIN TEAR NOTED TO RT AC, NO DRAINAGE, EDEMA, ACTIVE BLEEDING. PER DAY SHIFT PT REMOVED NGT. REMAINS NPO @ THIS TIME. BOWEL SOUNDS ACTIVE X4, LEFT FEMORAL TRIPLE LUMEN, CENTRAL LINE REMAINS PATENT WITHOUT INFILTRATION. PEDAL PULSES PALPABLE. SAFETY PRECAUTIONS IN PLACE. CALL LIGHT WITHIN REACH.
--- NOTE | 2019-11-18 19:40 | NUR ---
* ST PVE NOTE * Clinician in to complete swallow evaluation w/pt at this time. Upon reviewing pt's EMR, clinician noting pt was extubated today, 11/18/19 at 11:55. Safest protocol suggests to wait at least 24 hours s/p extubation to complete a bedside swallow evaluation w/pt to avoid increased risk for aspiration, choking and potentially aspiration PNA. Thus, clinician will re-attempt swallow evaluation tomorrow, 11/19/19 if pt's condition allows. PVE
[2019-11-18] MEDS: hydrALAZINE 20 MG/ML VIAL IVP PRN ×3 (19:57→21:15)
--- NOTE | 2019-11-18 19:57 | NUR ---
BP @ 175/82, HR 62. PT ASYMPTOMATIC. PRN HYDRALAZINE ADMINISTERED ORDERED. WILL FOLLOW UP.
--- NOTE | 2019-11-18 20:00 | NUR ---
SPOKE WITH MD BARKER RE PTS NPO STATUS AND MEDICATION ROUTE. NEW ORDERS TO GIVE MEDS CRUSHED IN APPLESAUCE. BEDSIDE SWALLOW PRIOR TO ADMINISTRATION.
--- NOTE | 2019-11-18 20:48 | NUR ---
BP @ 119/56, HR 71. EDUCATED PT ON S/S OF HYPOTENSION. SAFETY PRECAUTIONS IN PLACE.
[2019-11-18] MEDS: ALLOPURINOL 100 MG TAB PO SCH (21:02)
[2019-11-18] MEDS: QUEtiapine FUMARATE 25 MG TAB NG SCH (21:02)
[2019-11-18] MEDS: SIMVASTATIN 20 MG TAB PO SCH (21:02)
--- NOTE | 2019-11-18 23:00 | NUR ---
REPOSITIONED. HEELS OFFLOADED. DENIES PAIN. FLACC 0. BED LOW AND LOCKED. SIDE RAILS UP X2. CALL LIGHT WITHIN REACH. WILL CONTINUE TO MONITOR.
[2019-11-19] VITALS (10 sets, daily range): BP systolic 120–171; BP diastolic 52–99
--- NOTE | 2019-11-19 | NUR ---
MADE ROUNDS . NO S/SXS OF ACUTE DISTRESS NOTED AT THIS TIME . WILL CONT. TO MONITOR - 02 SAT WNL . NO FURTHER COMPLAIN MADE.
[2019-11-19] MEDS: ALBUTEROL SULFATE/IPRATROPIU 3 ML SOL IH SCH ×4 (00:38→20:19)
--- NOTE | 2019-11-19 01:00 | NUR ---
DENIES PAIN @ THIS TIME. FLACC 0. REPOSITIONED. BED LOW AND LOCKED. CALL LIGHT WITHIN REACH. WILL CONTINUE TO MONITOR.
--- NOTE | 2019-11-19 03:00 | NUR ---
VSS. BED BATH GIVEN. FARIDEH CARE PROVIDED. SAFETY PRECAUTIONS IN PLACE. BED LOW AND LOCKED. CALL LIGHT WITHIN REACH. WILL CONTINUE TO MONITOR.
[2019-11-19] MEDS: SODIUM CHLORIDE FLUSH 10 ML SYR IVF SCH ×3 (05:01→21:00)
[2019-11-19 05:44] LABS: BASOPHILS % (AUTO) 0.1 % (0.0-2.0); EOSINOPHILS # (AUTO) 0.4 K/uL (0-0.4); EOSINOPHILS % (AUTO) 2.3 % (0.0-4.0); HEMATOCRIT 33.6 % (36-48); HEMOGLOBIN 10.8 g/dL (12.0-16.0); LYMPHOCYTES # (AUTO) 3.9 K/uL (2.5-16.5); MEAN CORPUSCULAR HEMOGLOBIN 29 pg (27-31); MEAN CORPUSCULAR HGB CONC 32 g/dL (33-37); MEAN CORPUSCULAR VOLUME 90.9 fL (80-94); MONOCYTES # (AUTO) 1.4 K/uL (0.8-1.0); MONOCYTES % (AUTO) 8.2 % (1.7-9.3); NEUTROPHILS # (AUTO) 11.1 K/uL (1.8-7.7); NEUTROPHILS % (AUTO) 66.4 % (42.2-75.2); PLATELET COUNT (AUTO) 196 K/uL (140-450); RED CELL DISTRIBUTION WIDTH 14.6 % (11.6-13.7); WHITE BLOOD COUNT (AUTO) 16.8 K/uL (4.8-10.8)
[2019-11-19 05:53] LABS: ANION GAP 13.2 (8-16); CREATININE 0.6 mg/dL (0.6-1.3); POTASSIUM 3.2 mmol/L (3.5-5.1)
[2019-11-19 05:58] LABS: MAGNESIUM 1.7 mg/dL (1.8-2.4); PHOSPHORUS 3.3 mg/dL (2.5-4.9)
[2019-11-19] MEDS: hydrALAZINE 20 MG/ML VIAL IVP PRN (06:32)
--- NOTE | 2019-11-19 06:37 | NUR ---
BP 171/74, HR 67. DENIES HEADACHE/ DIZZINESS. PRN HYDRALAZINE ADMINISTERED ORDERED. EDUCATED PT ON S/S HYPOTENSION. WILL FOLLOW-UP.
[2019-11-19] MEDS: BLOOD GLUCOSE MONITORING 1 DEV DEV FS SCH ×4 (06:58→20:38)
[2019-11-19] MEDS: BUDESONIDE 0.5 MG/2 ML NEBU INH SCH ×2 (07:24→20:19)
--- NOTE | 2019-11-19 07:30 | NUR ---
RECEIVED REPORT FROM PM SHIFT. PT AWAKE , ALERT , ABLE TO FOLLOW SIMPLE COMMANDS. BEDSIDE MONITOR SHOWS SR. ON RA, SATING 98%. RESPIRATIONS EVEN AND UNLABORED. LUNG SOUND CLEAR. SKIN TEAR NOTED TO RT AC, PT NPO AT THIS TIME, WILL DO SWALLOW EVAL TODAY. BOWEL SOUNDS ACTIVE , ABD SOFT, NONTENDER. CENTRAL LINE TO LEFT FEMORAL TRIPLE LUMEN INTACT AND PATENT. SAFETY PRECAUTIONS IN PLACE. CALL LIGHT WITHIN REACH.
[2019-11-19] MEDS: INSULIN NPH HUM/REG INSULIN HM 100 UNIT/ML 10 ML VIAL SUBQ SCH ×2 (09:00→21:57)
[2019-11-19] MEDS: FENOFIBRATE 48 MG TAB PO SCH (09:36)
[2019-11-19] MEDS: MONTELUKAST SODIUM 10 MG TAB PO SCH (09:36)
[2019-11-19] MEDS: amLODIPine 5 MG TAB PO SCH (09:37)
[2019-11-19] MEDS: CARVEDILOL 6.25 MG TAB PO SCH ×2 (09:37→21:49)
[2019-11-19] MEDS: NIFEdipine 90 MG TABER PO SCH (09:37)
[2019-11-19] MEDS: LISINOPRIL 10 MG TAB PO SCH (09:37)
[2019-11-19] MEDS: EZETIMIBE 10 MG TAB PO SCH (09:37)
[2019-11-19] MEDS: CLOPIDOGREL 75 MG TAB PO SCH (09:37)
[2019-11-19] MEDS: PANTOPRAZOLE 40 MG INJ VIAL IVP SCH (09:38)
[2019-11-19] MEDS: methylPREDNISolone SS 40 MG/ML VIAL IVP SCH (09:38)
[2019-11-19] MEDS: ENOXAPARIN 30 MG/0.3 ML SYR SUBQ SCH (09:49)
[2019-11-19] MEDS: MAGNESIUM OXIDE 400 MG TAB PO PRN (10:19)
[2019-11-19] MEDS: INSULIN LISPRO SLIDING SCALE 100 UNITS/ML VIAL SUBQ PRN ×3 (12:19→22:01)
--- NOTE | 2019-11-19 12:30 | NUR ---
PT BLOOD SUGAR 222, INSULIN 4 UNITS GIVEN ORDERED.
--- NOTE | 2019-11-19 12:43 | NUR ---
PHYSICAL THERAPY AT BEDSIDE TO EVALUATE PT.
[2019-11-19] MEDS: AZITHROMYCIN 500 MG in DEXTROSE 5% 250 ML IV SCH (13:41)
[2019-11-19] MEDS ORDERED: BISACODYL 10 MG SUPP RC SCH (16:23)
[2019-11-19] MEDS ORDERED: SODIUM PHOSPHATE 118 ML ENEM RC SCH (16:24)
--- NOTE | 2019-11-19 17:00 | NUR ---
BS 345, INSULIN 8 UNITS GIVEN ORDERED. PT HAD MODERATE AMOUNT OF FORMED BM. CLEANED PT.
--- NOTE | 2019-11-19 18:25 | NUR ---
PT ARRIVED UNIT VIA GURNEY, ASSISTED TO TRANSFER PT FROM ICU BED TO UNIT BED. PT TOLERATED WELL. PT IS AAOX2 TO NAME AND PLACE. RESPIRATION EVEN AND UNLABORED ON 2LPM VIA NC. DENIED PAIN, SOB, NAUSEA, AND VOMITING. NO SIGNS OF DISTRESS NOTED. CENTRAL LINE ON L FEMORAL TRIPLE LUMEN, SL. COLLINS IN PLACE AND DRAINING YELLOW URINE. PT IS FALL RISK DUE TO WEAKNESS, FALL RISK PROTOCOL IN PLACE AND BED ALARM ACTIVATED. TELE MONITOR ATTACHED. INSTRUCTED PT TO USE THE CALL LIGHT FOR ANY ASSISTANCE AND PT SAID OK.
--- NOTE | 2019-11-19 18:40 | NUR ---
PT REQUESTED TO USE THE BATHROOM FOR BM. PROVIDED BEDSIDE COMMODE. MILITARY TECHNICIAN ASSISTED PT. NO SIGNS OF DISTRESS NOTED. SAFETY MEASURES IN PLACE.
--- NOTE | 2019-11-19 18:52 | NUR ---
PER PT'S REQUEST, CALLED BROTHER ALEX AND INFORMED THAT PT HAS TRANSFER FROM ICU TO ROOM 121 BED A, ALEX WAS AWARE.
--- NOTE | 2019-11-19 19:04 | NUR ---
PT IS TALKING ON THE PHONE WITH DAUGHTER. NO SIGNS OF DISTRESS NOTED. TELE MONITOR ATTACHED. SAFETY MEASURES IN PLACE. FALL RISK PROTOCOL IN PLACE AND BED ALARM ACTIVATED.
--- NOTE | 2019-11-19 19:13 | NUR ---
RECIEVED PT AAOX3 , NID , WITH 3 LUMENS CETRAL LINE AT LEFT FEMORAL . O2 SAT WNL , O2 AT 2LPM , WITH FC DRAINING YELLOW U.O -CLEAR . ON FALL RISK - BED ALARM ON - ON SAFETY/ FALL PRECAUTION PROTOCOL . PLAN OF CARE DISCUSSED AND VERBALIZED UNDERSTANDING ,BUT NEEDS REINFORCEMENT FROM NOW AND THEN . DENIES ANY PAIN AT THIS TIME.WITH HEALING SKIN TEAR AT THE CUBITAL AREA ON THE RIGHT. WILL CONT. TO MONITOR.
--- NOTE | 2019-11-19 19:13 | NUR ---
ENDORSED PT AT BEDSIDE TO FAMILY SUPPORT WORKER NURSE FOR CONTINUITY OF CARE. PT AWAKE AND WATCHING TV AT THIS TIME. NO SIGNS OF DISTRESS NOTED. TELE MONITOR ATTACHED. PT IS IN STABLE CONDITION. SAFETY MEASURES IN PLACE. BED ALARM ACTIVATED.
--- NOTE | 2019-11-19 20:04 | NUR ---
* ST NOTE * Pt seen at bedside w/nsg present. Pt alert and cooperative, reporting no c/o pain at this time. Bedside dysphagia and oral mechanism exams completed. See evaluation report for further details. Pt tolerating 6/8 alternating PO trials of regular solid saltine crackers w/o s/s of aspiration. Pt however presenting with difficulty masticating boluses, with pieces of crackers falling out of oral cavity during mastication. Pt then coughing after 2 trials of thin liquid apple juice via a straw, as well as coughing after 2 trials of thin liquids via a cup. Pt however tolerating 5/5 alternating PO trials of honey-thick cranberry juice via a cup w/o s/s of aspiration. Pt also requiring minimal tactile and verbal assistance w/self-feeding 2/2 to impulsivity. Pt and caregivers/nsg education completed re: aspiration precautions and safe swallow compensatory strategies pt and caregivers could utilize to aid pt w/swallow function, w/pt nodding and caregivers/nsg verbalizing understanding and agreement w/clinician's recommendations. Because pt demonstrating difficulty masticating regular solids, it is recommended pt's PO diet consistency be modified to mechanical soft-ground textures w/honey-thickened liquids, w/strict aspiration precautions in place. ST to ff 2x/week for 1 week to potentially upgrade pt's diet consistency as tolerated. Pt and caregivers/Nsg education completed re: results of evaluation; benefits of abiding by aspiration precautions and recommended PO diet consistency; and prognosis for improvement; w/pt and caregiver/nsg verbalizing understanding and agreement w/clinician's recommendations. Recommend: - PO DIET CONSISTENCY OF MECHANICAL SOFT-GROUND TEXTURES W/HONEY-THICKENED LIQUIDS for all meals - PO MEDICATION ADMINISTRATION CRUSHED IN GROUND TEXTURES OR HONEY-THICKENED LIQUIDS - NO USE OF STRAW PLEASE - PO INTAKE OF HONEY-THICKENED LIQUID VIA SPOON OR CUP ONLY - MAINTAIN STRICT ASPIRATION PRECAUTIONS DURING PT'S PO INTAKE - Pt requires assistance w/feeding 2/2 to impulsivity - FEEDER TO SIT PT UP AT 80-90 DEGREE ANGLE DURING PO INTAKE; FEED PT SLOWLY; ALTERNATE BTWN SOLIDS & LIQUIDS; AND PROVIDE SMALL BITES/SIPS ST to ff 2x/week for 1 week to potentially upgrade pt's diet as tolerated. NOMS Level 4
[2019-11-19] MEDS: QUEtiapine FUMARATE 25 MG TAB NG SCH (21:49)
[2019-11-19] MEDS: DOCUSATE SODIUM 100 MG GELCAP PO SCH (21:49)
[2019-11-19] MEDS: SIMVASTATIN 20 MG TAB PO SCH (21:49)
[2019-11-19] MEDS: ALLOPURINOL 100 MG TAB PO SCH (21:50)
--- NOTE | 2019-11-19 22:00 | NUR ---
MADE ROUNDS. NO S/SXS OF ACUTE DISTRESS AT THIS TIME , WILL CONT. TO MONITOR.
[2019-11-20] VITALS: BP 122/65
[2019-11-20] MEDS: ALBUTEROL SULFATE/IPRATROPIU 3 ML SOL IH SCH ×3 (01:30→14:27)
--- NOTE | 2019-11-20 01:41 | NUR ---
PATIENT ON ROOM AIR, PULSE OX SAT 100%. SCHEDULED BREATHING TREATMENT ADMINISTERED. TOLERATED TX WELL WITHOUT ADVERSE SIDE EFFECTS. NO ACUTE RESPIRATORY DISTRESS NOTED AT THIS TIME. WILL CONTINUE TO MONITOR.
--- NOTE | 2019-11-20 02:00 | NUR ---
SLEEPING - CHEST RISE AND FALL EQUALLY . WILL CONT TO MONITOR - ON TRUSS DESIGNER.
[2019-11-20 04:00] VITALS: BP 133/63
--- NOTE | 2019-11-20 04:00 | NUR ---
MADE ROUNDS , NO S/SXS OF ACUTE DISTRESS NOTED AT THIS TIME. NO COMPLAIN MADE AT THIS TIME. O2 SAT 100 T0 99% WILL CONT TO MONITOR.
[2019-11-20] MEDS: SODIUM CHLORIDE FLUSH 10 ML SYR IVF SCH ×2 (05:42→13:00)
[2019-11-20] MEDS: BLOOD GLUCOSE MONITORING 1 DEV DEV FS SCH ×3 (05:43→16:28)
[2019-11-20 05:55] LABS: BASOPHILS # (AUTO) 0.1 K/uL (0.00-0.22); BASOPHILS % (AUTO) 0.4 % (0.0-2.0); EOSINOPHILS # (AUTO) 0.2 K/uL (0-0.4); HEMATOCRIT 33.5 % (36-48); HEMOGLOBIN 10.8 g/dL (12.0-16.0); LYMPHOCYTES # (AUTO) 3.2 K/uL (2.5-16.5); MEAN CORPUSCULAR HEMOGLOBIN 29 pg (27-31); MEAN CORPUSCULAR HGB CONC 32 g/dL (33-37); MONOCYTES # (AUTO) 1.2 K/uL (0.8-1.0); MONOCYTES % (AUTO) 7.3 % (1.7-9.3); NEUTROPHILS # (AUTO) 12.3 K/uL (1.8-7.7); NEUTROPHILS % (AUTO) 72.3 % (42.2-75.2); PLATELET COUNT (AUTO) 231 K/uL (140-450); RED BLOOD CELL COUNT(AUTO) 3.68 MIL/uL (4.20-5.40); RED CELL DISTRIBUTION WIDTH 14.6 % (11.6-13.7)
[2019-11-20 06:00] LABS: ANION GAP 10.6 (8-16); CARBON DIOXIDE 27.9 mmol/L (21-32); CREATININE 0.7 mg/dL (0.6-1.3); POTASSIUM 3.5 mmol/L (3.5-5.1)
--- NOTE | 2019-11-20 06:00 | NUR ---
MADE ROUNDS . NO S/SXS OF DISTRESS NOTED AT THIS TIME . FED WITH THICKENED HONEY WARM COFFEE - TOLERATED. NO COMPLAIN MADE AT THIS TIME. GOOD U.O
[2019-11-20 06:01] LABS: MAGNESIUM 1.8 mg/dL (1.8-2.4); PHOSPHORUS 2.8 mg/dL (2.5-4.9)
--- NOTE | 2019-11-20 07:22 | NUR ---
ENDORSED TO AM NURSE FOR CONT. OF CARE . NO S/SXS OF ACUTE DISTRESS NOTED AT THIS TIME. DENIES ANY PAIN. ENDORSED THERE IS INVERTED T WAVE ON LATEST CARDIAC TRACING BUT PT. DENIES [place] PAIN , NO COMPLAIN MADE . FOLLOW UP LABS RESULTS - ENDORSED TO AM NURSE.
--- NOTE | 2019-11-20 07:30 | NUR ---
RECEIVED PT FROM DRILL PRESS OPERATOR NURSEVALENTINA, PT IS AWAKE AND LYING ON THE BED WITH SIDE RAILS UP AND CALL LIGHT WITHIN REACH, PT ON O2 2L NC,, COLLINS CATHETER IN PLACE, SAFETY AND FALL PRECAUTION ENFORCED, BED ALARM ACTIVATED, IN LOW POSITION, NO SIGN OF DISTRESS NOTED AND WILL MONITOR PT.
[2019-11-20 08:00] VITALS: BP 147/67
[2019-11-20] MEDS: BUDESONIDE 0.5 MG/2 ML NEBU INH SCH (08:59)
[2019-11-20] MEDS: PANTOPRAZOLE 40 MG INJ VIAL IVP SCH (09:01)
[2019-11-20] MEDS: DOCUSATE SODIUM 100 MG GELCAP PO SCH (09:02)
[2019-11-20] MEDS: methylPREDNISolone SS 40 MG/ML VIAL IVP SCH (09:02)
[2019-11-20] MEDS: EZETIMIBE 10 MG TAB PO SCH (09:02)
[2019-11-20] MEDS: MONTELUKAST SODIUM 10 MG TAB PO SCH (09:03)
[2019-11-20] MEDS: LISINOPRIL 10 MG TAB PO SCH (09:03)
[2019-11-20] MEDS: FENOFIBRATE 48 MG TAB PO SCH (09:04)
[2019-11-20] MEDS: amLODIPine 5 MG TAB PO SCH (09:04)
[2019-11-20] MEDS: CARVEDILOL 6.25 MG TAB PO SCH (09:06)
[2019-11-20] MEDS: CLOPIDOGREL 75 MG TAB PO SCH (09:07)
[2019-11-20] MEDS: ENOXAPARIN 30 MG/0.3 ML SYR SUBQ SCH (09:09)
[2019-11-20] MEDS: NIFEdipine 90 MG TABER PO SCH (09:14)
--- NOTE | 2019-11-20 09:14 | NUR ---
PT IS AWAKE AND WAS GIVEN THE AM MEDICATIONS, PARAMETERS CHECKED, BP IS 153/55, PULSE WAS CHECKED MANUALLY AND IS 63, O2 SATURATION IS 96%, ASPIRATION PRECAUTION INTIATED, PT SEATED ON HIGH-STERLING'S, NO SIGN OF DISTRESS NOTED AND WILL MONITOR TP.
[2019-11-20] MEDS: INSULIN NPH HUM/REG INSULIN HM 100 UNIT/ML 10 ML VIAL SUBQ SCH (09:16)
--- NOTE | 2019-11-20 09:47 | NUR ---
PT WAS ASSISTED TO THE COMMODE AND MADE A BOWEL MOVEMENT, AND WAS CLEANED UP AND ASSISTED BACK TO BED, AND MADE COMFORTABLE, WILL CONTINUE TO MONITOR PT.
[2019-11-20] MEDS: INSULIN LISPRO SLIDING SCALE 100 UNITS/ML VIAL SUBQ PRN ×2 (11:35→16:29)
--- NOTE | 2019-11-20 11:43 | NUR ---
PT WAS GIVEN IVPB ROCEPHIN NOW, BLOOD GLUCOSE CHECK DONE AND RESULT IS 338 AND INSULIN 8 UNITS WAS GIVEN ON THE LEFT UA, VS TAKEN AND MIGUEL IS 95/52, PULSE IS 61, TEMPERATURE IS 98.7, O2 SATURATION IS 96% AT 022L NC. NO SIGN OF DISTRESS NOTED AND PT IS WATCHING TV, WILL MONITOR PT.
[2019-11-20 12:00] VITALS: BP 105/52
[2019-11-20] MEDS ORDERED: CIPR500T4 PO (13:16)
[2019-11-20] MEDS ORDERED: PRED20TA5 PO (13:16)
[2019-11-20] MEDS ORDERED: BUDE1AER IH (13:20)
--- NOTE | 2019-11-20 14:31 | NUR ---
SPOKE TO NOLAN, CASE MANAGEMENT OF [facility] INFORMING THAT PT CAN BE DISCHARGE AND OXYGEN WILL BE CONTINUED TO HOME AND WILL SPEAK WITH FAMILY REGARDING HOME HEALTH FOR THE PT AND WILL HAVE REFERRAL OF HOME HEALTH IF IN CASE FAMILY DOES NOT HAVE ANY HOME HEALTH.
--- NOTE | 2019-11-20 14:57 | NUR ---
[facility] TEL# [phone], STATED THEY CAN SEND A NURSE IN PT'S HOME TOMORROW. CLINICALS FAXED TO [facility] # [phone] AND [facility] FAX# [phone]. CONFIRMATION ATTACHED TO PT'S CHART.
--- NOTE | 2019-11-20 15:04 | NUR ---
SPOKE TO DR. KAHN AND MADE A TELEPHONE ORDER TO DISCONTINUE COLLINS CATHETER AND CENTRAL LINE, TELEPHONE ORDER VERIFIED AND WILL CARRY OUT ORDER.
[2019-11-20 16:00] VITALS: BP 120/52
[2019-11-20] MEDS: AZITHROMYCIN 500 MG in DEXTROSE 5% 250 ML IV SCH (16:33)
--- NOTE | 2019-11-20 17:30 | NUR ---
DISCHARGED PT TO HOME WITH BROTHER, DISCHARGED INSTRUCTIONS AND MEDICATION PRESCRIPTION GIVEN TO PT AND VERBALIZED UNDERSTANDING, PT WAS INFORMED THAT A HOME HEALTH NURSE WILL BE VISITING HER AND PT VERBALIZED UNDERSTANDING WELL. PT IS STABLE AT THIS TIME.
--- NOTE | 2019-11-29 14:38 | NUR ---
PCP Appointment: DICKSON contacted Arnold from Dr. Mechelle Gutierrez's office [phone] to schedule hospital follow up. DICKSON made appointment for 1015 on 12/03/2019 @ [address] [id number]. Patient was notified. No further needs identified.
== END 2019-11-20 17:28 | disposition home or self-care (01) | DRG 870 ==
LOC: MED 06:42 → MIC 09:30 → MTU 11-19 18:28
PROVIDERS: ADMIT Internal Medicine Pulmonary Disease; ATTEND Internal Medicine Pulmonary Disease
PROC: 5A1955Z Respiratory Ventilation, Greater than 96 Consecutive Hours (ICD-10-PCS; principal; 2019-11-07)
PROC: 0BH17EZ Insertion of Endotracheal Airway into Trachea, Via Natural or Artificial Opening (ICD-10-PCS; 2019-11-07)
PROC: 06HY33Z Insertion of Infusion Device into Lower Vein, Percutaneous Approach (ICD-10-PCS; 2019-11-07)
DX: A41.9 Sepsis, unspecified organism (principal); J15.0 Pneumonia due to Klebsiella pneumoniae; J69.0 Pneumonitis due to inhalation of food and vomit; J96.21 Acute and chronic respiratory failure with hypoxia; G93.41 Metabolic encephalopathy; J44.1 Chronic obstructive pulmonary disease with (acute) exacerbation; N39.0 Urinary tract infection, site not specified; J44.0 Chronic obstructive pulmonary disease with (acute) lower respiratory infection; R00.1 Bradycardia, unspecified; E66.9 Obesity, unspecified; I10 Essential (primary) hypertension; F17.210 Nicotine dependence, cigarettes, uncomplicated; E11.65 Type 2 diabetes mellitus with hyperglycemia; F41.9 Anxiety disorder, unspecified; E66.01 Morbid (severe) obesity due to excess calories; Z68.30 Body mass index [BMI] 30.0-30.9, adult; Z99.81 Dependence on supplemental oxygen; Z79.4 Long term (current) use of insulin
CPT/HCPCS: 31500; 36415; 36600; 51702; 70450; 71045; 71270; 80048; 80053; 80305; 81001; 82140; 82803; 82948; 83605; 83735; 83880; 84100; 84484; 85025; 85610; 85730; 87040; 87070; 87081; 87086; 87186; 87205; 92610; 93005; 94002; 94003; 94640; 96365; 96367; 96375; 97112; 97163-GP; 99291; C9113; J0330; J0360; J0456; J0696; J1650; J1815; J1940; J2060; J2250; J2270; J2543; J2704; J2920; J3010; J3370; J3475; J3480; J3490; J7030; J7060; J7613; J7620; J7626; J7644; Q0092; Q9967